=== PATIENT | female | born 1930 | race Caucasian/White ===

== ENCOUNTER 2017-01-23 14:13 | Inpatient (IN) | payer MEDICAID, MEDICARE ==
[~2017-01-23] VITALS: Ht 152.4 cm; Wt 57.4 kg
[~2017-01-23 14:13] MED LIST: BIMA2.5D5 EACHEYE; DORZ10DR11 EACHEYE; GLIP5TAB26 PO; HYDR-552 PO; NAPR375T5 PO; PROP10DR2 EACHEYE; TEMA15CA PO
--- NOTE | 2017-01-23 14:13 | NUR ---
BIB FAMILY C/O COUGH WITH CONGESTION X 1 WEEK. NAD NOTED. PT AAO X3, CUBAN SPEAKER. AMB WITH WALKER. RR EVEN AND UNLABORED. PENDING MD PARADA.
[2017-01-23 15:03] LABS: BASOPHILS # (AUTO) 0.1 /CMM (0.0-0.2); BASOPHILS % (AUTO) 0.7 % (0.0-2.0); EOSINOPHILS # (AUTO) 0.2 /CMM (0.0-0.7); EOSINOPHILS % (AUTO) 1.5 % (0.0-6.0); HEMATOCRIT 44 % (33-45); HEMOGLOBIN 14.5 g/dL (11.5-14.8); LYMPHOCYTES # (AUTO) 1.6 /CMM (0.8-4.8); LYMPHOCYTES % (AUTO) 15.5 % (20.0-44.0); MEAN CORPUSCULAR HEMOGLOBIN 28 PG (26.0-33.0); MEAN CORPUSCULAR HGB CONC 33 g/dl (31.0-36.0); MEAN CORPUSCULAR VOLUME 84 fL (82-100); MONOCYTES # (AUTO) 0.5 /CMM (0.1-1.30); MONOCYTES % (AUTO) 4.9 % (2.0-12.0); NEUTROPHILS # (AUTO) 7.9 /CMM (1.8-8.9); NEUTROPHILS % (AUTO) 77.4 % (43.0-81.0); PLATELET COUNT (AUTO) 257 /CMM (150-450); RDW COEFFICIENT OF VARIATION 13.6 (11.5-15.0); RED BLOOD CELL COUNT(AUTO) 5.26 MIL/uL (4.0-5.2); WHITE BLOOD COUNT (AUTO) 10.3 K/uL (4.3-11.0)
--- NOTE | 2017-01-23 15:10 | NUR ---
PT TO CT
[2017-01-23 15:17] LABS: INR 0.98 (0.87-1.13); PROTHROMBIN TIME 10.2 SECS (9.5-12.7)
[2017-01-23 15:19] LABS: ALBUMIN 3.5 g/dL (3.4-5.0); BILIRUBIN,DIRECT 0.1 mg/dL (0.0-0.2); BILIRUBIN,TOTAL 0.3 mg/dL (0.2-1.0); CREATININE 0.5 mg/dL (0.6-1.3); TOTAL PROTEIN, SERUM 7.5 g/dL (6.4-8.2)
[2017-01-23 15:24] LABS: CALCIUM, SERUM 9.2 mg/dL (8.5-10.1)
[2017-01-23 16:36] LABS: APPEARANCE,URINE Clear (CLEAR); BILIRUBIN,URINE Negative (NEGATIVE); BLOOD, URINE Trace-intact Ery/uL (NEGATIVE); COLOR,URINE Yellow (YELLOW); KETONES,URINE Negative (NEGATIVE); LEUKOCYTE ESTERASE ,URINE Negative (NEGATIVE); NITRITE, URINE Negative (NEGATIVE); PH,URINE 5.5 (5.0-8.0); PROTEIN,URINE Negative (NEGATIVE); UGLUCOSE Negative (NEGATIVE); UROBILINOGEN,URINE 0.2 EU/dL (0.2)
[2017-01-23 16:45] LABS: ADD URINE CULTURE NO; BACTERIA,URINE Rare /HPF (None Seen); RBC,URINE 0-2 /HPF (0-2); SQUAMOUS EPITHELIAL CELL,UR Few /HPF (None Seen); WBC,URINE 0-2 /HPF (0-3)
[2017-01-23] MEDS ORDERED: PIPERACILLIN /TAZOBACTAM 3.375 G VIAL IV ONE (16:59)
[2017-01-23] MEDS ORDERED: IV SET PRIMARY PUMP SET 1 EA INFUS.SET MC ONE ×2 (16:59→21:28)
[2017-01-23] MEDS ORDERED: PIPERACILLIN /TAZOBACTAM 3.375 G in IV D5W 50 ML IV ONE (17:00)
--- NOTE | 2017-01-23 17:01 | NUR ---
PAGED DR DO
--- NOTE | 2017-01-23 17:01 | NUR ---
CALLED NURSING SUP REQUESTED MEDSURG BED
--- NOTE | 2017-01-23 17:36 | NUR ---
PANEL ON-CALL PAGED
[2017-01-23] MEDS ORDERED: GLIP10TA11 PO (17:47)
[2017-01-23] MEDS ORDERED: OMEP20TA68 PO (17:47)
[2017-01-23] MEDS ORDERED: DICL75TA5 PO (17:47)
[2017-01-23] MEDS ORDERED: LATA2.5D7 EACHEYE (17:47)
--- NOTE | 2017-01-23 18:30 | NUR ---
REPORT GIVEN TO ANUSHA MELENDREZ FOR PORTIA
[2017-01-23 20:00] VITALS: BP 131/77
[2017-01-23] MEDS ORDERED: ONDANSETRON HCL/PF 4 MG/2 ML VIAL IVP PRN (20:30)
[2017-01-23] MEDS ORDERED: MAGNESIUM HYDROXIDE 30 ML UDC PO PRN (20:30)
[2017-01-23] MEDS ORDERED: Z GUARD REMEDY 2 OZ OINT TP PRN (20:30)
[2017-01-23] MEDS ORDERED: ACETAMINOPHEN 325 MG TABLET PO PRN (20:30)
[2017-01-23] MEDS ORDERED: ZOLPIDEM TARTRATE 5 MG TABLET PO PRN (20:30)
[2017-01-23] MEDS ORDERED: MAG HYDROX/AL HYDROX/SIMETH 30 ML UDC PO PRN (20:30)
[2017-01-23] MEDS: ENOXAPARIN SODIUM 30 MG/0.3 ML DISP.SYRIN SQ SCH (21:12)
[2017-01-23] MEDS: HYDROCODONE/APAP 5/325MG 1 EACH TABLET PO PRN (21:38)
[2017-01-23] MEDS: IV NS 0.9% 1,000 ML IV PRN (21:40)
[2017-01-24] MEDS ORDERED: METRONIDAZOLE 500MG/ NS 100ML 500 MG in PREMIX 1 EA IV SCH ×2 (00:30→07:23)
[2017-01-24] MEDS ORDERED: DEXTROSE 50%-WATER 50 ML DISP.SYRIN IV PRN (00:30)
[2017-01-24] MEDS ORDERED: METRONIDAZOLE 500MG/ NS 100ML 100 ML IV ONE (01:24)
--- NOTE | 2017-01-24 02:30 | NUR ---
MS RN ADMITTING OPENING NOTES RECEIVED PATIENT IN WHEELCHAIR AT 1905 01/23/2017 AWAKE, ALERT AND ORIENTED X 3. IN STABLE CONDITION NO S/S OF DISTRESS NOTED. VERBALLY RESPONSIVE WITH NO C/O PAIN OR DISCOMFORTS VOICED. IV SITE INTACT W/ NO S/S OF INFILTRATION NOTED. HEAD TO TOE ASSESSMENT SKIN IS INTACT, CALL LIGHT WITHIN REACH. BED AT LOW POSITION AND LOCKED FOR SAFETY. WILL CONTINUE TO MONITOR ACCORDINGLY.
[2017-01-24] MEDS: HYDROCODONE/APAP 5/325MG 1 EACH TABLET PO PRN (02:56)
[2017-01-24] MEDS ORDERED: ALBUTEROL FS 2.5 MG/3 ML VIAL.NEB ONE (04:03)
[2017-01-24] MEDS: ALBUTEROL FS 2.5 MG/3 ML VIAL.NEB NEB SCH ×5 (04:07→21:53)
[2017-01-24] MEDS: BLOOD SUGAR DIAGNOSTIC 1 EACH STRIP IN SCH ×4 (05:40→21:27)
--- NOTE | 2017-01-24 06:31 | NUR ---
MS RN CLOSING NOTES PATIENT COMFORTABLY IN BED ASLEEP AND EASILY AWAKEN, HEAD OF BED ELEVATED FOR BETTER LUNG EXPANSION AND BETTER CIRCULATION, TOLERATING ROOM AIR, SP02 96% R.A ALERT AND VERBALLY X 3 NO S/S OF DISTRESS, LUXEMBOURGER SPEAKING, NS AT 75CC/HR RUNNING TOLERATED WELL, IV SITE INTACT W/ NO S/S OF INFILTRATION NOTED. RESPIRATIONS EVEN UNLABORED BREATH SOUNDS. APICAL PULSE REGULAR; NO S/S OF HYPO/HYPERGLYCEMIA. GOOD SKIN CARE PROVIDED. PATIENT IN STABLE CONDITION WITH NO SOB NO S/S OF DISTRESS NO NAUSEA AND VOMITING NO HEADACHE NO PAIN, NO CHEST PAIN SAFETY ENVIRONMENT PROVIDED. FREE OF CLUTTERS, SAFE HAZARD FREE ENVIRONMENT. NEEDS ATTENDED AND ANTICIPATED, NURSING CARE RENDERED, KEPT CLEAN AND DRY AND COMFORTABLE. ALL DUE MEDS WAS GIVEN. CALL LIGHT IN REACH, BED LOWERED AND LOCKED, SR X2 FOR SAFETY AND WILL ENDORSE CONTINUE PLAN OF CARE. ON ATB WITH NO A/R NOTED.
[2017-01-24 06:35] LABS: BASOPHILS % (AUTO) 0.6 % (0.0-2.0); EOSINOPHILS # (AUTO) 0.2 /CMM (0.0-0.7); EOSINOPHILS % (AUTO) 2.8 % (0.0-6.0); HEMATOCRIT 39 % (33-45); HEMOGLOBIN 12.7 g/dL (11.5-14.8); LYMPHOCYTES % (AUTO) 30.7 % (20.0-44.0); MEAN CORPUSCULAR HEMOGLOBIN 28 PG (26.0-33.0); MEAN CORPUSCULAR HGB CONC 33 g/dl (31.0-36.0); MEAN CORPUSCULAR VOLUME 85 fL (82-100); MONOCYTES # (AUTO) 0.5 /CMM (0.1-1.30); MONOCYTES % (AUTO) 7.8 % (2.0-12.0); NEUTROPHILS # (AUTO) 3.7 /CMM (1.8-8.9); NEUTROPHILS % (AUTO) 58.1 % (43.0-81.0); PLATELET COUNT (AUTO) 218 /CMM (150-450); RDW COEFFICIENT OF VARIATION 14.8 (11.5-15.0); RED BLOOD CELL COUNT(AUTO) 4.61 MIL/uL (4.0-5.2); WHITE BLOOD COUNT (AUTO) 6.4 K/uL (4.3-11.0)
--- NOTE | 2017-01-24 07:00 | NUR ---
MS RN INITIAL NOTES REPORT RECEIVED AT THE BEDSIDE. PATIENT IS RESTING COMFORTABLY IN BED. NO SOB OR DISTRESS NOTED AT THIS TIME. PATIENT DENIES PAIN. BED IN A LOW POSITION, CALL LIGHT WITHIN PATIENT REACH. WILL CONTINUE TO MONITOR.
[2017-01-24 07:01] LABS: CALCIUM, SERUM 8.7 mg/dL (8.5-10.1); CREATININE 0.6 mg/dL (0.6-1.3); MAGNESIUM 1.9 mg/dL (1.8-2.4); PHOSPHORUS 4.6 mg/dL (2.5-4.9); POTASSIUM 4.2 mmol/L (3.5-5.1)
[2017-01-24 08:00] VITALS: BP 129/50
[2017-01-24] MEDS: ASPIRIN 81 MG TAB.CHEW PO SCH (08:13)
[2017-01-24] MEDS: TIMOLOL MAL/DORZOLAM HCL OPHTH 10 ML BOTTLE EACHEYE SCH ×2 (08:13→17:46)
[2017-01-24] MEDS: PANTOPRAZOLE 40 MG TABLET.DR PO SCH (08:13)
[2017-01-24] MEDS: POLYVINYL ALCOHOL 15 ML BOTTLE OP SCH ×3 (08:13→17:46)
[2017-01-24] MEDS: METRONIDAZOLE 500MG/ NS 100ML 500 MG in PREMIX 1 EA IV SCH ×2 (12:14→21:26)
[2017-01-24] MEDS: INSULIN REGULAR, HUMAN 100 UNIT/ML 3 ML VIAL SQ PRN ×3 (12:16→22:11)
[2017-01-24] MEDS: IV NS 0.9% 1,000 ML IV PRN (14:38)
[2017-01-24 16:00] VITALS: BP 119/61
--- NOTE | 2017-01-24 16:00 | NUR ---
MS RN NOTES PATIENT ASKS TO BE TAKEN OFF OF THE IV FLUIDS FOR A LITTLE WHILE.
[2017-01-24] MEDS: LATANOPROST EYE DROP 0.005% 2.5 ML BOTTLE EACHEYE SCH (17:46)
--- NOTE | 2017-01-24 19:10 | NUR ---
MS RN CLOSING NOTES NO SIGNIFICANT CHANGES IN PATIENT CONDITION THROUGHOUT THE SHIFT. NO SOB OR DISTRESS NOTED AT THIS TIME. PATIENT DENIES PAIN. BED IN A LOW POSITION, CALL LIGHT WITHIN PATIENT REACH, FAMILY IS AT THE BEDSIDE. WILL ENDORSE FOR PORTIA.
--- NOTE | 2017-01-24 19:10 | NUR ---
RN NOTES RECEIVED PT AWAKE, HOB ELEVATED AT ROOM AIR, NO SOB, NOT IN DISTRESS WITH FAMILY AT BED SIDE. PT ALERT ALERT AND ORIENTED X3, DENIES ANY PAIN AND DISCOMFORT. COUGH AT TIMES, PRODUCTIVE, ABLE TO SPIT OUT CLEAR, WHITE, THIN SECRETIONS. IV ACCESS ON LEFT AC PATENT AND INTACT WITH ONGOING IVF INFUSING WELL. KEPT ON FULL LIQUID DIET, PT MADE AWARE. KEPT BED IN THE LOWEST POSITION, LOCKED, SIDE RAILSX2 UP WITH CALL LIGHT WITHIN REACH. KEPT COMFORTABLE AND ATTENDED. WILL CONTINUE TO MONITOR ACCORDINGLY.
[2017-01-24 20:00] VITALS: BP 112/47
--- NOTE | 2017-01-24 21:27 | NUR ---
RN NOTES BLOOD SUGAR CHECKED 126 MG/DL, NO INSULIN COVERAGE PER SLIDING SCALE. WILL CONTINUE TO MONITOR PT.
[2017-01-24] MEDS: ENOXAPARIN SODIUM 30 MG/0.3 ML DISP.SYRIN SQ SCH (21:30)
[2017-01-25] MEDS: ALBUTEROL FS 2.5 MG/3 ML VIAL.NEB NEB SCH ×7 (01:33→23:30)
[2017-01-25] MEDS: METRONIDAZOLE 500MG/ NS 100ML 500 MG in PREMIX 1 EA IV SCH ×3 (05:12→21:25)
[2017-01-25] MEDS: BLOOD SUGAR DIAGNOSTIC 1 EACH STRIP IN SCH ×4 (06:18→21:27)
--- NOTE | 2017-01-25 06:18 | NUR ---
RN NOTES BLOOD SUGAR CHECKED 101 MG/DL, NO INSULIN COVERAGE PER SLIDING SCALE. NO SIGNS AND SYMPTOMS HYPOGLYCEMIA NOTED.WILL CONTINUE TO MONITOR PT.
--- NOTE | 2017-01-25 06:50 | NUR ---
RN NOTES PT AWAKE, HOB ELEVATED, NO SOB, NOT IN DISTRESS, ON O2 INHALATION AT 2LPM VIA NC. VITAL SIGNS STABLE, AFEBRILE. NO COMPLAIN OF PAIN, NO EPISODE OF NAUSEA AND VOMITING NOTED. COUGH AT TIMES, PRODUCTIVE, ABLE TO SPIT OUT SECRETIONS. BRP, ASSISTED TO BATHROOM WITH FWW. FALL PRECAUTION OBSERVED. TOLERATED FULL LIQUID DIET. NO SIGNS OF HYPOGLYCEMIA NOTED. WILL ENDORSE TO MORNING RN FOR CONTINUITY OF CARE.
[2017-01-25 07:51] VITALS: BP 115/64
[2017-01-25 08:00] VITALS: BP 115/64
--- NOTE | 2017-01-25 08:00 | NUR ---
MS RN AM NOTES PT AWAKE, HOB ELEVATED, NO SOB, NOT IN DISTRESS, ON ROOM AIR. AFEBRILE. NO COMPLAIN OF PAIN, NO EPISODE OF NAUSEA AND VOMITING NOTED. NO COUGHING NOTED.ASSISTED TO BEDSIDE COMMODE WITH FWW WITH ASSIST. FALL PRECAUTION OBSERVED. TOLERATED FULL LIQUID DIET. NO SIGNS OF HYPOGLYCEMIA NOTED.CALL LIGHT PLACED WITHIN REACH.
[2017-01-25] MEDS: PANTOPRAZOLE 40 MG TABLET.DR PO SCH (08:25)
[2017-01-25] MEDS: ASPIRIN 81 MG TAB.CHEW PO SCH (08:25)
[2017-01-25] MEDS: HYDROCODONE/APAP 5/325MG 1 EACH TABLET PO PRN (08:29)
[2017-01-25] MEDS: TIMOLOL MAL/DORZOLAM HCL OPHTH 10 ML BOTTLE EACHEYE SCH ×2 (08:56→18:37)
[2017-01-25] MEDS: POLYVINYL ALCOHOL 15 ML BOTTLE OP SCH ×3 (08:56→18:37)
[2017-01-25] MEDS: IV NS 0.9% 1,000 ML IV PRN (10:15)
[2017-01-25 13:14] LABS: BASOPHILS # (AUTO) 0.1 /CMM (0.0-0.2); BASOPHILS % (AUTO) 0.6 % (0.0-2.0); EOSINOPHILS # (AUTO) 0.2 /CMM (0.0-0.7); EOSINOPHILS % (AUTO) 2.6 % (0.0-6.0); HEMATOCRIT 38 % (33-45); HEMOGLOBIN 12.4 g/dL (11.5-14.8); LYMPHOCYTES # (AUTO) 1.2 /CMM (0.8-4.8); LYMPHOCYTES % (AUTO) 14.6 % (20.0-44.0); MEAN CORPUSCULAR HEMOGLOBIN 28 PG (26.0-33.0); MEAN CORPUSCULAR HGB CONC 33 g/dl (31.0-36.0); MEAN CORPUSCULAR VOLUME 84 fL (82-100); MONOCYTES # (AUTO) 0.6 /CMM (0.1-1.30); MONOCYTES % (AUTO) 6.7 % (2.0-12.0); NEUTROPHILS # (AUTO) 6.4 /CMM (1.8-8.9); NEUTROPHILS % (AUTO) 75.5 % (43.0-81.0); PLATELET COUNT (AUTO) 210 /CMM (150-450); RDW COEFFICIENT OF VARIATION 14.6 (11.5-15.0); RED BLOOD CELL COUNT(AUTO) 4.47 MIL/uL (4.0-5.2); WHITE BLOOD COUNT (AUTO) 8.5 K/uL (4.3-11.0)
[2017-01-25 13:39] LABS: CALCIUM, SERUM 8.5 mg/dL (8.5-10.1); CREATININE 0.6 mg/dL (0.6-1.3); MAGNESIUM 1.8 mg/dL (1.8-2.4); POTASSIUM 4.6 mmol/L (3.5-5.1)
[2017-01-25 16:00] VITALS: BP 118/71
[2017-01-25] MEDS: LATANOPROST EYE DROP 0.005% 2.5 ML BOTTLE EACHEYE SCH (18:38)
--- NOTE | 2017-01-25 19:46 | NUR ---
PT HAS BEEN REFUSING ACCUCHECK SAYING THAT IT HURTS HER FINGERS.EXPLAINED ITS RISKS AND BENEFITS BUT PT CONTINUE TO REFUSE.DR LAKHANI AWARE.PT RESTING IN BED DENYING ANY PAIN OR DISTRESS.CALL LIGHT PLACED WITHIN REACH.
--- NOTE | 2017-01-25 19:47 | NUR ---
RN NOTES RECEIVED PT AWAKE, HOB ELEVATED, NO SOB, NOT IN DISTRESS, ON O2 INHALATION AT 2LPM VIA NC TOLERATED WELL. PT ALERT AND ORIENTED X3, DENIES ANY PAIN AND DISCOMFORT. WITH IV ACCESS ON LEFT AC PATENT AND INTACT WITH ONGOING IVF INFUSING WELL. KEPT BED IN LOWEST POSITION, LOCKED, SIDE RAILS UP X3 WITH CALL LIGHT WITHIN REACH. KEPT COMFORTABLE AND ATTENDED. FALL PRECAUTION OBSERVED. WILL CONTINUE TO MONITOR PT.
[2017-01-25 20:00] VITALS: BP 156/88
--- NOTE | 2017-01-25 20:57 | NUR ---
RN NOTES DR LAKHANI MADE AWARE PT STILL ON FULL LIQUID DIET SINCE ADMISSION, AND CHANGED IT TO SOFT DIET. PT MADE AWARE , AND STATED ON SOFT DIET AND TOLERATED WELL. WILL CONTINUE TO MONITOR PT.
[2017-01-25] MEDS: ENOXAPARIN SODIUM 30 MG/0.3 ML DISP.SYRIN SQ SCH (21:26)
--- NOTE | 2017-01-25 21:27 | NUR ---
RN NOTES PT REFUSED FOR BLOOD SUGAR CHECK BECAUSE OF PAIN, RISK AND BENEFITS EXPLAINED, PT STRONGLY REFUSED.
[2017-01-25] MEDS: INSULIN REGULAR, HUMAN 100 UNIT/ML 3 ML VIAL SQ PRN (21:28)
[2017-01-26] MEDS: HYDROCODONE/APAP 5/325MG 1 EACH TABLET PO PRN (01:44)
--- NOTE | 2017-01-26 01:44 | NUR ---
RN NOTES PT COMPLAINS OF RIGHT UPPER LEG PAIN 03/18, AFTER SHE GET UP AND USE THE BEDSIDE COMMODE. NORCO 5/325 MG TAB GIVEN PO AND TOLERATED WELL. WILL CONTINUE TO MONITOR PT.
[2017-01-26] MEDS: ALBUTEROL FS 2.5 MG/3 ML VIAL.NEB NEB SCH ×4 (03:30→14:50)
[2017-01-26] MEDS: METRONIDAZOLE 500MG/ NS 100ML 500 MG in PREMIX 1 EA IV SCH (05:05)
[2017-01-26] MEDS: IV NS 0.9% 1,000 ML IV PRN (05:06)
[2017-01-26] MEDS ORDERED: FUROSEMIDE 20 MG/2 ML VIAL IV ONE (05:30)
--- NOTE | 2017-01-26 06:00 | NUR ---
RN NOTES RECEIVED NEW ORDER FROM DR LAKHANI, CHANGED IV FLAGYL TO PO, LASIX 20MG IV X1 , CXR TODAY AND D/C IVF. PT MADE AWARE. NOTED AND CARRIED OUT.
[2017-01-26] MEDS ORDERED: FUROSEMIDE 20 MG/2 ML VIAL ONE (06:25)
[2017-01-26] MEDS: BLOOD SUGAR DIAGNOSTIC 1 EACH STRIP IN SCH ×3 (06:31→17:15)
[2017-01-26] MEDS: INSULIN REGULAR, HUMAN 100 UNIT/ML 3 ML VIAL SQ PRN ×2 (06:32→17:15)
--- NOTE | 2017-01-26 06:33 | NUR ---
RN NOTES BLOOD SUGAR CHECKED 95 MG/DL, NO INSULIN COVERAGE PER SLIDING SCALE. NO SIGNS OF HYPOGLYCEMIA NOTED.
--- NOTE | 2017-01-26 07:12 | NUR ---
RN NOTES PT AWAKE, HOB ELEVATED, NO SOB, NOT IN DISTRESS, WITH O2 INHALATION AT 2LPM AND TOLERATED WELL. VITAL SIGNS STABLE, AFEBRILE. DENIES CHEST PAIN AND SOB. NO EPISODE OF NAUSEA AND VOMITING NOTED. PT COUGH AT TIMES, PRODUCTIVE WITH SMALL THIN WHITE SECRETIONS. ASSISTED TO BATHROOM AND BEDSIDE COMMODE, WITH SAFETY MEASURES IN PLACE. ALL NEEDS MET. WILL ENDORSE TO MORNING RN FOR CONTINUITY OF CARE.
--- NOTE | 2017-01-26 07:30 | NUR ---
MS RN NOTES RECEIVED PATIENT AWAKE, AOX3. BREATHING EVEN AND NON LABORED, DENIES ANY PAIN AT THIS TIME. PIV LAC INTACT AND PATENT. CALL LIGHT WITHIN REACH, BED IN LOW POSITION FOR SAFETY MEASURES. WILL CONTINUE TO MONITOR
[2017-01-26 08:00] VITALS: BP 135/68
--- NOTE | 2017-01-26 08:00 | NUR ---
MS RN NOTES SEEN AND EXAMINED BY DR. LAKHANI. WITH NEW ORDERS MADE MADE FOR DC HOME TODAY.
[2017-01-26] MEDS: PANTOPRAZOLE 40 MG TABLET.DR PO SCH (08:41)
[2017-01-26] MEDS: ASPIRIN 81 MG TAB.CHEW PO SCH (08:41)
[2017-01-26] MEDS: TIMOLOL MAL/DORZOLAM HCL OPHTH 10 ML BOTTLE EACHEYE SCH ×2 (08:42→16:03)
[2017-01-26] MEDS: POLYVINYL ALCOHOL 15 ML BOTTLE OP SCH ×3 (08:42→16:02)
[2017-01-26 09:35] LABS: BASOPHILS % (AUTO) 0.3 % (0.0-2.0); EOSINOPHILS # (AUTO) 0.2 /CMM (0.0-0.7); EOSINOPHILS % (AUTO) 1.8 % (0.0-6.0); HEMATOCRIT 39 % (33-45); HEMOGLOBIN 12.7 g/dL (11.5-14.8); LYMPHOCYTES % (AUTO) 11.6 % (20.0-44.0); MEAN CORPUSCULAR HEMOGLOBIN 28 PG (26.0-33.0); MEAN CORPUSCULAR HGB CONC 33 g/dl (31.0-36.0); MEAN CORPUSCULAR VOLUME 85 fL (82-100); MONOCYTES # (AUTO) 0.5 /CMM (0.1-1.30); MONOCYTES % (AUTO) 6.1 % (2.0-12.0); NEUTROPHILS # (AUTO) 7.2 /CMM (1.8-8.9); NEUTROPHILS % (AUTO) 80.2 % (43.0-81.0); PLATELET COUNT (AUTO) 201 /CMM (150-450); RDW COEFFICIENT OF VARIATION 14.3 (11.5-15.0); RED BLOOD CELL COUNT(AUTO) 4.51 MIL/uL (4.0-5.2); WHITE BLOOD COUNT (AUTO) 8.9 K/uL (4.3-11.0)
[2017-01-26 09:46] LABS: CALCIUM, SERUM 8.7 mg/dL (8.5-10.1); CREATININE 0.5 mg/dL (0.6-1.3); MAGNESIUM 1.6 mg/dL (1.8-2.4); POTASSIUM 3.7 mmol/L (3.5-5.1)
--- NOTE | 2017-01-26 10:00 | NUR ---
MS RN NOTES LATEST O2 SAT RA 93%. NO S/S OF RESPIRATORY DISTRESS OR SOB NOTED.
--- NOTE | 2017-01-26 10:30 | NUR ---
MS RN NOTES PT FOR DC HOME TODAY, DTR AT BEDSIDE. DTR STATED THAT SHE WILL COME BACK TO LINE OUT MAN HER MOM IN THE EVENING AROUND 6PM.
--- NOTE | 2017-01-26 11:30 | NUR ---
MS RN NOTES MAGNESIUM IV STARTED.
--- NOTE | 2017-01-26 11:40 | NUR ---
MS RN NOTES PT REFUSED TO CHECK HER BLOOD SUGAR. RISK AND BENEFITS DISCUSSED BUT SHE STILL REFUSED.
[2017-01-26] MEDS ORDERED: SECONDARY IV SET 1 EA INFUS.SET MC ONE (12:02)
[2017-01-26] MEDS: Magnesium 1GM/D5W 100ML PREMIX 100 ML IV SCH ×2 (12:09→13:24)
[2017-01-26] MEDS ORDERED: METRONIDAZOLE 250 MG TABLET PO SCH (13:00)
[2017-01-26] MEDS ORDERED: LEVO500T15 PO (14:51)
[2017-01-26 16:00] VITALS: BP_SYST 114; BP_SYST 125; BP_DIAS 53; BP_DIAS 89
[2017-01-26] MEDS: LATANOPROST EYE DROP 0.005% 2.5 ML BOTTLE EACHEYE SCH (17:14)
--- NOTE | 2017-01-26 17:15 | NUR ---
MS RN NOTES PT REFUSED TO CHECK HER BS SHE STATED THAT SHE ONLY CHECK HER SUGAR IN THE MORNING BEFORE BREAKFAST. EXPLAINED TO THE PT THAT SHE'S AT RISK FOR LOW AND HIGH BS. PT REFUSED 3X.
--- NOTE | 2017-01-26 17:41 | NUR ---
MS RN NOTES PT'S GRAND DTR CALLED AND SHE STATED THAT THEY'LL BE COMING TONIGHT TO EXECUTIVE COORDINATOR THE PT.
--- NOTE | 2017-01-26 18:11 | NUR ---
MS RN NOTES NEEDS ALL ANTICIPATED AND ATTENDED. ENDORSED TO INCOMING SHIFT FOR CONTINUITY OF CARE.
--- NOTE | 2017-01-26 19:54 | NUR ---
PATIENT DISCHARGE PATIENT LEFT AT 1954, PATIENT ON STABLE CONDITION NO S/S OF DISTRESS NOTED, NO CHEST PAIN, NO HEADACHE, NO NAUSEA AND VOMITING, NO COMPLAINS OF PAIN, VS STABLE, TOLERATING ROOM AIR, HEALTH EDUCATION AND EXIT CARE WAS PROVIDED, EDUCATION ABOUT DISEASE AND RISKS AND BENEFITS FOLLOW UP CARE PROVIDED WITH FAMILY, VERBALIZED UNDERSTANDING. DOCUMENTS WAS PROVIDED. CONTINUE MEDICATION PRESCRIPTION WAS PROVIDED. VERBALIZED UNDERSTANDING. IV SITE WAS REMOVED WITH MINIMAL BLEEDING, APPLIED CLEAN DRESSING FOR PRESSURE AND KEPT CLEAN AND DRY. TOLERATED PROCEDURE WELL. MD AWARE OF PATIENT BEING DISCHARGE, ALL BELONGINGS WAS TAKEN, ASSIST PATIENT TO GO TO THE WHEELCHAIR WITH COP BREAKER TO THE LOBBY FOR TRANSPORTATION WITH DAUGHTER PATIENT APPRECIATIVE TO NURSES AND THANKFUL. PATIENT LEFT WITH THEIR OWN TRANSPORTATION.
== END 2017-01-26 19:55 | disposition home or self-care (01) | DRG 246 ==
LOC: ER 14:15 → MEDSG2 18:05
PROVIDERS: ADMIT Internal Medicine; ATTEND Internal Medicine
DX: K55.9 Vascular disorder of intestine, unspecified (principal); I50.33 Acute on chronic diastolic (congestive) heart failure; I27.2 Other secondary pulmonary hypertension; E11.9 Type 2 diabetes mellitus without complications; M48.02 Spinal stenosis, cervical region; I11.0 Hypertensive heart disease with heart failure; A09 Infectious gastroenteritis and colitis, unspecified; E78.5 Hyperlipidemia, unspecified; Z79.899 Other long term (current) drug therapy; Z79.84 Long term (current) use of oral hypoglycemic drugs; I34.2 Nonrheumatic mitral (valve) stenosis; M19.90 Unspecified osteoarthritis, unspecified site; Z86.73 Personal history of transient ischemic attack (TIA), and cerebral infarction without residual deficits; G89.29 Other chronic pain; I35.0 Nonrheumatic aortic (valve) stenosis; J42 Unspecified chronic bronchitis
CPT/HCPCS: 36415; 71010-TC; 80048-TC; 80061-TC; 80076-TC; 81000-TC; 82962-TC; 83690-TC; 83735-TC; 84100-TC; 85025-TC; 85730-TC; 87081-TC; 93307-TC; 94799-TC; 97001-TC; 97116-TC; 97530-TC; A4216; A4606; J1650; J1815; J1940; J2543; J3475; J3490; J7030; Z7610

== ENCOUNTER 2017-02-27 11:56 | Inpatient (IN) | payer MEDICAID, MEDICARE ==
[~2017-02-27] VITALS: Ht 160 cm; Wt 56.4 kg
[~2017-02-27 11:56] MED LIST changes: -BIMA2.5D5 EACHEYE; +GLIP10TA11 PO; -GLIP5TAB26 PO; -HYDR-552 PO; +LATA2.5D7 EACHEYE; +LEVO500T15 PO; -NAPR375T5 PO; +OMEP20TA68 PO; -TEMA15CA PO
--- NOTE | 2017-02-27 12:10 | NUR ---
AAOX3, BB DAUGHTER FOR ABD PAIN AND N/V SINCE YESTERDAY AFTER EATING IN A BUFFET. SKIN IS WARM AND DRY. RESP IS EVEN AND UNLABORED. NO ACUTE DISTRESS NOTED. ASSISTED TO HOSPITAL GOWN. STARTED IVHL LAC 20G. BLOOD DRAWN SENT TO THE LAB. DR PRETTY AT FOR EVAL.
[2017-02-27] MEDS ORDERED: PANTOPRAZOLE 40 MG VIAL ONE (12:44)
[2017-02-27] MEDS ORDERED: ONDANSETRON HCL/PF 4 MG/2 ML VIAL ONE (12:44)
[2017-02-27] MEDS ORDERED: MORPHINE SULFATE INJ 4 MG/ML DISP.SYRIN ONE (12:44)
[2017-02-27] MEDS ORDERED: IV SET PRIMARY 1 EA INFUS.SET MC ONE (12:45)
[2017-02-27] MEDS ORDERED: IV NS 0.9% 1,000 ML ONE (12:45)
[2017-02-27 12:50] LABS: BASOPHILS % (AUTO) 0.3 % (0.0-2.0); EOSINOPHILS % (AUTO) 0.4 % (0.0-6.0); HEMATOCRIT 42 % (33-45); HEMOGLOBIN 13.8 g/dL (11.5-14.8); LYMPHOCYTES # (AUTO) 0.7 /CMM (0.8-4.8); LYMPHOCYTES % (AUTO) 9.5 % (20.0-44.0); MEAN CORPUSCULAR HEMOGLOBIN 27 PG (26.0-33.0); MEAN CORPUSCULAR HGB CONC 33 g/dl (31.0-36.0); MEAN CORPUSCULAR VOLUME 84 fL (82-100); MONOCYTES # (AUTO) 0.5 /CMM (0.1-1.30); MONOCYTES % (AUTO) 6.5 % (2.0-12.0); NEUTROPHILS # (AUTO) 6.1 /CMM (1.8-8.9); NEUTROPHILS % (AUTO) 83.3 % (43.0-81.0); PLATELET COUNT (AUTO) 166 /CMM (150-450); RDW COEFFICIENT OF VARIATION 13.6 (11.5-15.0); RED BLOOD CELL COUNT(AUTO) 5.04 MIL/uL (4.0-5.2); WHITE BLOOD COUNT (AUTO) 7.3 K/uL (4.3-11.0)
[2017-02-27 12:58] LABS: CARBON DIOXIDE 26 mmol/L (21-32); CHLORIDE 104 mmol/L (98-107); CREATININE 0.7 mg/dL (0.6-1.3); GLUCOSE 106 mg/dL (74-106); POTASSIUM 4.2 mmol/L (3.5-5.1); SODIUM SERUM 140 mmol/L (136-145); UREA NITROGEN, BLOOD 29 mg/dL (7-18)
[2017-02-27] MEDS ORDERED: ONDANSETRON HCL/PF 4 MG/2 ML VIAL IVP ONE (13:00)
[2017-02-27] MEDS ORDERED: MORPHINE SULFATE INJ 2 MG/ML DISP.SYRIN IV ONE (13:00)
[2017-02-27] MEDS ORDERED: IV NS 0.9% 1,000 ML BAG IV ONE (13:00)
[2017-02-27] MEDS ORDERED: PANTOPRAZOLE 40 MG VIAL IV ONE (13:00)
[2017-02-27 13:03] LABS: ALANINE AMINOTRANSFERASE 11 U/L (12-78); ALBUMIN 3.4 g/dL (3.4-5.0); ALKALINE PHOSPHATASE 88 U/L (46-116); ASPARTATE AMINOTRANSFERASE 15 U/L (15-37); BILIRUBIN,DIRECT 0.1 mg/dL (0.0-0.2); BILIRUBIN,TOTAL 0.5 mg/dL (0.2-1.0); LIPASE 96 U/L (73-393); TOTAL PROTEIN, SERUM 7.3 g/dL (6.4-8.2)
--- NOTE | 2017-02-27 14:44 | NUR ---
KB PAGED, DR.VU ROMERO PULP GRINDER, TRANSFERRED CALL TO
[2017-02-27] MEDS ORDERED: IV NS 0.9% 1,000 ML IV PRN (14:47)
[2017-02-27] MEDS ORDERED: DEXTROSE 50%-WATER 50 ML DISP.SYRIN IV PRN ×2 (15:00→16:00)
[2017-02-27] MEDS ORDERED: MAGNESIUM HYDROXIDE 30 ML UDC PO PRN ×2 (15:00→16:00)
[2017-02-27] MEDS ORDERED: *INSULIN REGULAR(HUMULIN R)HUM 100 UNIT/ML VIAL SQ PRN ×2 (15:00→16:00)
[2017-02-27] MEDS ORDERED: MAG HYDROX/AL HYDROX/SIMETH 30 ML UDC PO PRN ×2 (15:00→16:00)
[2017-02-27] MEDS ORDERED: ACETAMINOPHEN 325 MG TABLET PO PRN (15:00)
[2017-02-27] MEDS ORDERED: Z GUARD REMEDY 2 OZ OINT TP PRN (15:00)
[2017-02-27] MEDS ORDERED: ZOLPIDEM TARTRATE 5 MG TABLET PO PRN ×2 (15:00→16:00)
[2017-02-27] MEDS ORDERED: ONDANSETRON HCL/PF 4 MG/2 ML VIAL IVP PRN ×2 (15:00→16:00)
[2017-02-27] MEDS ORDERED: INSULIN REGULAR, HUMAN 100 UNIT/ML 3 ML VIAL SQ PRN ×2 (15:00→16:00)
[2017-02-27] MEDS ORDERED: HYDROCODONE/APAP 5/325MG 1 EACH TABLET PO PRN ×2 (15:00→16:00)
--- NOTE | 2017-02-27 15:30 | NUR ---
MS 206-1
--- NOTE | 2017-02-27 15:40 | NUR ---
REPORT GIVEN TO MINDY FOR PORTIA
[2017-02-27 15:55] VITALS: BP 97/51
--- NOTE | 2017-02-27 15:55 | NUR ---
MS RN OPENING RECEIVED PATIENT A/OX4 STATES SLIGHT NAUSEA DENIES PAIN SOB, DIFFICULTY BREATHING. PATIENT DENIES DIARRHEA AT THIS TIME AWARE WE ARE NEEDING A CDIFF SAMPLE IF ANOTHER BOUT OF DIARRHEA. PATIENT SKIN INTACT. IV INTACT FLUSHED. DAUGHTER AT BEDSIDE FOR TRANSLATION. PATIENT APPEARS STABLE AT THIS TIME. CALL LIGHT IN REACH, BED LOWERED AND LOCKED, RAILS UPX3 FOR SAFETY AND WILL ROUND Q2H OR LESS PER NEEDS. MD AWARE OF ADMISSION.
[2017-02-27 16:00] VITALS: BP_SYST 90; BP_SYST 97; BP_DIAS 51; BP_DIAS 60
[2017-02-27] MEDS ORDERED: IV SET PRIMARY PUMP SET 1 EA INFUS.SET MC ONE (16:55)
[2017-02-27] MEDS: Z GUARD REMEDY 2 OZ OINT TP PRN (17:00)
[2017-02-27] MEDS: SYSTANE ULTRA EACHEYE SCH ×2 (17:00→18:04)
[2017-02-27] MEDS: glipiZIDE 10 MG TABLET PO SCH (17:00)
[2017-02-27] MEDS: BLOOD SUGAR DIAGNOSTIC 1 EACH STRIP VI SCH ×2 (17:00→21:26)
[2017-02-27] MEDS ORDERED: glipiZIDE 10 MG TABLET PO SCH (17:00)
[2017-02-27] MEDS: IV NS 0.9% 1,000 ML IV PRN (17:00)
[2017-02-27] MEDS ORDERED: TIMOLOL MAL/DORZOLAM HCL OPHTH 10 ML BOTTLE EACHEYE SCH (17:00)
--- NOTE | 2017-02-27 17:16 | NUR ---
MS RN NOTES AWAITING PHARMACY TO BRING UP EYE DROPS FOR PATIENT
[2017-02-27] MEDS ORDERED: BLOOD SUGAR DIAGNOSTIC 1 EACH STRIP VI SCH (17:30)
[2017-02-27] MEDS ORDERED: LATANOPROST EYE DROP 0.005% 2.5 ML BOTTLE EACHEYE SCH (18:00)
[2017-02-27] MEDS: LATANOPROST EYE DROP 0.005% 2.5 ML BOTTLE EACHEYE SCH (18:04)
[2017-02-27] MEDS: TIMOLOL MAL/DORZOLAM HCL OPHTH 10 ML BOTTLE EACHEYE SCH (18:04)
--- NOTE | 2017-02-27 18:41 | NUR ---
MS RN CLOSING PATIENT STABLE NO COMPLICATIONS NO CHANGES. PATIENT NO EPISODES OF DIARRHEA OR VOMITING. PATIENT DENIES PAIN. NAUSEA MANAGED WITH PRN MEDICATIONS. PATIENT ATE 75% OF BREAKFAST WITH NO COMPLICATIONS. ALL DUE MEDS GIVEN AND ALL NEEDS MET. CALL LIGHT IN REACH, BED LOWERED AND LOCKED, RAILS UPX3 FOR SAFETY AND WILL ENDORSE CARE TO ANEESH HOPKINS PORTIA
--- NOTE | 2017-02-27 19:35 | NUR ---
RN NOTE; RECEIVED PT IN BED AWAKE AND ALERT, BREATHING EVENLY. NO SOB. NO DISTRESS. NO C/O PAIN OR DISCOMFORT. DENIED ABD. PAIN OR N/V. NO DIARRHEA EPISODE AT THIS TIME. NEEDS ATTENDED. CALL LIGHT WITHIN REACH. WILL CONT TO MONITOR.
[2017-02-27 20:00] VITALS: BP 98/52
--- NOTE | 2017-02-27 21:30 | NUR ---
PT W/ FSBS:55 ON HS. PT ALERT AND ORIENTED. NO ALOC, NO CHANGE IN MS. NO EXCESSIVE SWEATING. D50 WAS GIVEN. PLACED A CALL FOR STAT GLUCOSE LEVEL AND INFORMED LAB FOR STAT ORDER. SNACKS OFFERED. WILL CONT TO MONITOR THE PT AND WILL RECHECK THE BS . WILL MONITOR PT FOR S/S OF HYPO OR HYPERGLYCEMIA CLOSELY.
--- NOTE | 2017-02-27 22:00 | NUR ---
UNABLE TO COLLECT STOOL SAMPLE ON THE DIARRHEA EPISODE DUE TO MIXED W/ URINE. WILL TRY NEXT TIME. Addendum: 02/27/17 at 2242 by GERONIMO SILVA RN Amended: Links added.
--- NOTE | 2017-02-27 22:00 | NUR ---
RECHECKED BS:118. PT STABLE W/ NO C/O DISCOMFORT. NAD. WILL CONT TO MONITOR
[2017-02-28] MEDS: IV NS 0.9% 1,000 ML IV PRN ×2 (04:49→18:35)
[2017-02-28] MEDS: BLOOD SUGAR DIAGNOSTIC 1 EACH STRIP VI SCH ×4 (06:49→21:46)
--- NOTE | 2017-02-28 06:50 | NUR ---
RN NOTE; PT IN BED AWAKE AND ALERT. BREATHING EVENLY. NO SOB;. NAD. NO ACUTE CHANGES OVER THE NIGHT. PT HAD AN EPISODE OF DIARRHEA DURING THE NIGHT. NO C/O N/V. NO C/O ABD. PAIN. NO S/S OF HYPO OR HYPERGLYCEMIA. BS:70 AC BREAKFAST. SNACKS GIVEN TO PREVENT HYPOGLYCEMIA. ASSISTED W/ ADLS. NEEDS MET. CALL LIGHT WITHIN REACH. WILL CONT TO MONITOR AND WILL ENDORSE TO AM SHIFT FOR PORTIA .
--- NOTE | 2017-02-28 07:15 | NUR ---
MS RN OPENING RECEIVED PATIENT A/OX4 DENIES PAIN, SOB, DIFFICULTY BREATHING AND STATES NO DIARRHEA AT THIS TIME. SHE IS AWARE WE ARE NEEDING A STOOL SAMPLE IF C DIFF QUALITY. PATIENT ASSISTED TO CHAIR FOR BREAKFAST. IVF RUNNING ORDERED. ALL NEEDS IN REACH CALL LIGHT IN REACH. WILL ROUND Q2H OR LESS PER NEEDS.
[2017-02-28] MEDS ORDERED: PANTOPRAZOLE 40 MG TABLET.DR PO SCH (07:30)
[2017-02-28 08:00] VITALS: BP 114/61
[2017-02-28 08:07] VITALS: BP 114/61
[2017-02-28] MEDS: PANTOPRAZOLE 40 MG TABLET.DR PO SCH (08:32)
[2017-02-28] MEDS: glipiZIDE 10 MG TABLET PO SCH ×2 (08:32→16:33)
[2017-02-28] MEDS: TIMOLOL MAL/DORZOLAM HCL OPHTH 10 ML BOTTLE EACHEYE SCH ×2 (08:33→16:33)
[2017-02-28] MEDS: SYSTANE ULTRA EACHEYE SCH ×3 (08:34→16:33)
[2017-02-28] MEDS: Z GUARD REMEDY 2 OZ OINT TP PRN (08:35)
--- NOTE | 2017-02-28 08:53 | NUR ---
MS RN NOTES DR ROMERO AT BEDSIDE
[2017-02-28 16:00] VITALS: BP 110/55
[2017-02-28] MEDS: LATANOPROST EYE DROP 0.005% 2.5 ML BOTTLE EACHEYE SCH (18:35)
--- NOTE | 2017-02-28 18:59 | NUR ---
MS RN CLOSING PATIENT STABLE. ALL DUE MEDS GIVEN AND ALL NEEDS MET. PATIENT IS HAVING BOUTS OF DIARRHEA X3 TODAY. Z GUARD FOR SACRUM PROTECTION. AWAITING CDIFF PANEL. PATIENT STATES NO NEEDS AT THIS TIME. CALL LIGHT IN REACH, BED LOWERED AND LOCKED, RAILS UPX3 FOR SAFETY BED ALARM ON. WILL ENDORSE CARE TO RN FOR PORTIA
[2017-02-28 20:00] VITALS: BP 126/58
[2017-02-28] MEDS: ACETAMINOPHEN 325 MG TABLET PO PRN (22:24)
--- NOTE | 2017-02-28 22:26 | NUR ---
COMPLAINING OF PAIN OF 3/10 TO RIGHT FOREARM, GIVEN TYLENOL 650 MG PO. KEPT COMFORTABLE, CALL LIGHT WITHIN REACH.
[2017-03-01] MEDS: IV NS 0.9% 1,000 ML IV PRN (06:27)
[2017-03-01] MEDS: BLOOD SUGAR DIAGNOSTIC 1 EACH STRIP VI SCH ×2 (06:28→12:51)
[2017-03-01 06:51] LABS: BASOPHILS % (AUTO) 0.2 % (0.0-2.0); EOSINOPHILS # (AUTO) 0.1 /CMM (0.0-0.7); EOSINOPHILS % (AUTO) 1.8 % (0.0-6.0); HEMATOCRIT 37 % (33-45); HEMOGLOBIN 12.5 g/dL (11.5-14.8); LYMPHOCYTES # (AUTO) 0.9 /CMM (0.8-4.8); LYMPHOCYTES % (AUTO) 15.1 % (20.0-44.0); MEAN CORPUSCULAR HEMOGLOBIN 29 PG (26.0-33.0); MEAN CORPUSCULAR HGB CONC 34 g/dl (31.0-36.0); MEAN CORPUSCULAR VOLUME 85 fL (82-100); MONOCYTES # (AUTO) 0.4 /CMM (0.1-1.30); NEUTROPHILS # (AUTO) 4.6 /CMM (1.8-8.9); NEUTROPHILS % (AUTO) 76.9 % (43.0-81.0); PLATELET COUNT (AUTO) 149 /CMM (150-450); RDW COEFFICIENT OF VARIATION 14.6 (11.5-15.0); RED BLOOD CELL COUNT(AUTO) 4.39 MIL/uL (4.0-5.2); WHITE BLOOD COUNT (AUTO) 5.9 K/uL (4.3-11.0)
--- NOTE | 2017-03-01 06:57 | NUR ---
MS RN NOTES AWAKE & RESPONSIVE. NOT IN ANY DISTRESS. NO SOB NOTED. DENIES ANY PAIN OR DISCOMFORT AT THIS TIME. WITH IVF INFUSING WELL. MONITORED ACCORDINGLY. CALL LIGHT WITHIN REACH. BED IN LOWEST POSITION. SR UP X 2 FOR SAFETY. WILL ENDORSE TO NEXT SHIFT.
[2017-03-01 07:04] LABS: CALCIUM, SERUM 8.8 mg/dL (8.5-10.1); CARBON DIOXIDE 26 mmol/L (21-32); CHLORIDE 106 mmol/L (98-107); CREATININE 0.4 mg/dL (0.6-1.3); GLUCOSE 76 mg/dL (74-106); POTASSIUM 4.2 mmol/L (3.5-5.1); SODIUM SERUM 139 mmol/L (136-145); UREA NITROGEN, BLOOD 8 mg/dL (7-18)
--- NOTE | 2017-03-01 07:50 | NUR ---
RN OPENING NOTES RECEIVED PATIENT IN BED, AWAKE, HOB, NO SOB OR DISTRESS NOTED. A/O X 4, VERBALLY RESPONSIVE AND ABLE TO MAKE NEEDS KNOWN. IV INTACT AND PATENT. KEPT PATIENT CLEAN AND COMFORTABLE IN BED, CALL LIGHT WITHIN PATIENT REACH. WILL CONTINUE TO MONITOR ACCORDINGLY.
[2017-03-01 08:00] VITALS: BP 151/68
[2017-03-01] MEDS: TIMOLOL MAL/DORZOLAM HCL OPHTH 10 ML BOTTLE EACHEYE SCH (08:32)
[2017-03-01] MEDS: glipiZIDE 10 MG TABLET PO SCH (08:32)
[2017-03-01] MEDS: PANTOPRAZOLE 40 MG TABLET.DR PO SCH (08:32)
--- NOTE | 2017-03-01 12:30 | NUR ---
RN NOTES PATIENT IS IN BED WITH HOB ELEVATED WITH NO SIGNS OF SOB OR DISTRESS NOTED.
[2017-03-01] MEDS: SYSTANE ULTRA EACHEYE SCH ×2 (12:51→14:02)
--- NOTE | 2017-03-01 13:45 | NUR ---
RN NOTES DAUGHTER JUDY CALLED TO KNOW STATUS OF PATIENT.
[2017-03-01] MEDS: ACETAMINOPHEN 325 MG TABLET PO PRN (14:01)
--- NOTE | 2017-03-01 16:40 | NUR ---
RN NOTES DISCHARGE INSTRUCTIONS GIVEN TO PATIENT IN ABLE TO UNDERSTAND INSTRUCTIONS AND SIGNED DISCHARGE PAPER AND BELONGINGS. IV REMOVED BEFORE DISCHARGE. PATIENT LEFT VIA WHEELCHAIR ACCOMPANIED WITH CUT OUT WORKER AND DAUGHTER IN STABLE CONDITION. NO SOB OR DISTRESS NOTED. VITALS SIGNS CHECKED AND RECORDED. MD AND CHARGE NURSE AWARE.
== END 2017-03-01 16:50 | disposition home or self-care (01) | DRG 249 ==
LOC: ER 11:58 → MEDSG2 15:51
PROVIDERS: ADMIT Family Medicine; ATTEND Family Medicine
DX: A08.4 Viral intestinal infection, unspecified (principal); I11.0 Hypertensive heart disease with heart failure; F03.90 Unspecified dementia, unspecified severity, without behavioral disturbance, psychotic disturbance, mood disturbance, and anxiety; I50.32 Chronic diastolic (congestive) heart failure; E11.9 Type 2 diabetes mellitus without complications; Z86.73 Personal history of transient ischemic attack (TIA), and cerebral infarction without residual deficits; I25.10 Atherosclerotic heart disease of native coronary artery without angina pectoris; M19.90 Unspecified osteoarthritis, unspecified site; Z79.899 Other long term (current) drug therapy; R53.81 Other malaise; K57.30 Diverticulosis of large intestine without perforation or abscess without bleeding
CPT/HCPCS: 36415; 80048-TC; 80076-TC; 82947-TC; 82962-TC; 83690-TC; 85025-TC; 87045-TC; 87081-TC; 97001-TC; A4606; C9113; J1815; J2270; J2405; J7030; Z7610

== ENCOUNTER 2017-04-11 13:49 | Emergency (ER) | payer MEDICARE, MEDICAID ==
[~2017-04-11] VITALS: Ht 152.4 cm; Wt 45.4 kg
--- NOTE | 2017-04-11 13:55 | NUR ---
COUGHING AT NIGHT X 2 WEEKS. AWATING MD ORDER.
[2017-04-11 14:21] LABS: BASOPHILS % (AUTO) 0.6 % (0.0-2.0); EOSINOPHILS # (AUTO) 0.1 /CMM (0.0-0.7); EOSINOPHILS % (AUTO) 1.7 % (0.0-6.0); HEMATOCRIT 39 % (33-45); LYMPHOCYTES # (AUTO) 1.6 /CMM (0.8-4.8); LYMPHOCYTES % (AUTO) 19.2 % (20.0-44.0); MEAN CORPUSCULAR HEMOGLOBIN 28 PG (26.0-33.0); MEAN CORPUSCULAR HGB CONC 33 g/dl (31.0-36.0); MEAN CORPUSCULAR VOLUME 85 fL (82-100); MONOCYTES # (AUTO) 0.7 /CMM (0.1-1.30); MONOCYTES % (AUTO) 8.4 % (2.0-12.0); NEUTROPHILS # (AUTO) 5.9 /CMM (1.8-8.9); NEUTROPHILS % (AUTO) 70.1 % (43.0-81.0); PLATELET COUNT (AUTO) 213 /CMM (150-450); RDW COEFFICIENT OF VARIATION 14.1 (11.5-15.0); RED BLOOD CELL COUNT(AUTO) 4.65 MIL/uL (4.0-5.2); WHITE BLOOD COUNT (AUTO) 8.3 K/uL (4.3-11.0)
[2017-04-11 14:29] LABS: CALCIUM, SERUM 8.4 mg/dL (8.5-10.1); CARBON DIOXIDE 29 mmol/L (21-32); CHLORIDE 108 mmol/L (98-107); CREATININE 0.9 mg/dL (0.6-1.3); GLUCOSE 192 mg/dL (74-106); POTASSIUM 4.2 mmol/L (3.5-5.1); SODIUM SERUM 143 mmol/L (136-145); UREA NITROGEN, BLOOD 35 mg/dL (7-18)
--- NOTE | 2017-04-11 14:30 | NUR ---
MEDICAL CENTER REPRESENTATIVE AT BEDSIDE
[2017-04-11 14:44] LABS: ACETAMINOPHEN 3 ug/ml (10-30); ALANINE AMINOTRANSFERASE 13 U/L (12-78); ALBUMIN 3.4 g/dL (3.4-5.0); ALKALINE PHOSPHATASE 99 U/L (46-116); ASPARTATE AMINOTRANSFERASE 17 U/L (15-37); BILIRUBIN,DIRECT 0.1 mg/dL (0.0-0.2); BILIRUBIN,TOTAL 0.3 mg/dL (0.2-1.0); TOTAL PROTEIN, SERUM 6.7 g/dL (6.4-8.2)
[2017-04-11 14:46] LABS: ALCOHOL, BLOOD 0 mg/dL (0-0); SALICYLATE 0.7 mg/dL (2.8-20.0)
[2017-04-11] MEDS ORDERED: IV NS 0.9% 1,000 ML BAG IV ONE (15:00)
--- NOTE | 2017-04-11 15:00 | NUR ---
[place] #20 IV ACCESS. MEDICATED ORDERED
--- NOTE | 2017-04-11 15:21 | NUR ---
Social service consult requested by ED PARVEEN Esquivel for resources to outpatient mental health facilities. ANDREW met with pt. and her daughter and other family members bedside. ANDREW gave pt's daughter a list of psychiatric/mental health facilities in [facility]. ANDREW also gave information to [facility] care located at [address] [place] [address] Tory Castro. POORNIMA . ANDREW discussed with family if pt. becomes a danger to self or others at home in the future they can call 911 and the police will send a crisis team to assess pt. Family understood.
--- NOTE | 2017-04-11 15:23 | NUR ---
URINE SAMPLE COLLECTED SENT TO LAB
[2017-04-11 15:24] VITALS: BP 100/63
[2017-04-11 15:27] LABS: APPEARANCE,URINE Clear (CLEAR); BILIRUBIN,URINE Negative (NEGATIVE); BLOOD, URINE Negative Ery/uL (NEGATIVE); COLOR,URINE Yellow (YELLOW); KETONES,URINE Trace (NEGATIVE); LEUKOCYTE ESTERASE ,URINE Negative (NEGATIVE); NITRITE, URINE Negative (NEGATIVE); PROTEIN,URINE Negative (NEGATIVE); UGLUCOSE Negative (NEGATIVE)
[2017-04-11 15:54] LABS: BACTERIA,URINE None seen /HPF (None Seen); RBC,URINE NONE SEEN /HPF (0-2); SQUAMOUS EPITHELIAL CELL,UR Rare /HPF (None Seen); WBC,URINE 0-2 /HPF (0-3)
--- NOTE | 2017-04-11 16:03 | NUR ---
Patient discharged to home in stable condition. Written and verbal after care instructions given. Patient verbalizes understanding of instruction.
--- NOTE | 2017-04-11 16:03 | NUR ---
IV removed. Catheter intact and site benign. Pressure and 4x4 applied to site. No bleeding noted.
== END 2017-04-11 16:03 | disposition home or self-care (01) ==
LOC: ER 13:54
DX: J18.9 Pneumonia, unspecified organism (principal); F32.9 Major depressive disorder, single episode, unspecified; E11.9 Type 2 diabetes mellitus without complications; I10 Essential (primary) hypertension; M19.90 Unspecified osteoarthritis, unspecified site; Z90.49 Acquired absence of other specified parts of digestive tract
CPT/HCPCS: 36415; 71010-TC; 80048-TC; 80076-TC; 80305; 81000-TC; 85025-TC; A4606; G0480; J7030; Z7610

== ENCOUNTER 2017-07-24 19:00 | Emergency (ER) | payer MEDICARE, MEDICAID ==
[~2017-07-24] VITALS: Ht 149.9 cm; Wt 54.0 kg
--- NOTE | 2017-07-24 19:25 | NUR ---
BBRA 860 FROM HOME C/O HEADACHE, BACK PAIN AND THROAT PAIN. PT AOX3 RR EVEN AND UNLABORED. NO SOB NOTED. NAD NOTED. NO NVD AT THIS TIME. PT GOWNED AND PLACED ON MONITOR WAITING FOR MD PARADA.
[2017-07-24] MEDS ORDERED: ACETAMINOPHEN ES 500 MG TABLET PO ONE (20:00)
[2017-07-24] MEDS ORDERED: KETOROLAC TROMETHAMINE INJ 60 MG/2 ML VIAL IM ONE (20:00)
[2017-07-24 20:12] LABS: BASOPHILS % (AUTO) 0.5 % (0.0-2.0); EOSINOPHILS # (AUTO) 0.2 /CMM (0.0-0.7); EOSINOPHILS % (AUTO) 2.2 % (0.0-6.0); HEMATOCRIT 39 % (33-45); HEMOGLOBIN 12.9 g/dL (11.5-14.8); LYMPHOCYTES # (AUTO) 1.7 /CMM (0.8-4.8); LYMPHOCYTES % (AUTO) 22.1 % (20.0-44.0); MEAN CORPUSCULAR HEMOGLOBIN 28 PG (26.0-33.0); MEAN CORPUSCULAR HGB CONC 34 g/dl (31.0-36.0); MEAN CORPUSCULAR VOLUME 84 fL (82-100); MONOCYTES # (AUTO) 0.5 /CMM (0.1-1.30); MONOCYTES % (AUTO) 6.3 % (2.0-12.0); NEUTROPHILS # (AUTO) 5.1 /CMM (1.8-8.9); NEUTROPHILS % (AUTO) 68.9 % (43.0-81.0); PLATELET COUNT (AUTO) 206 /CMM (150-450); RDW COEFFICIENT OF VARIATION 14.1 (11.5-15.0); RED BLOOD CELL COUNT(AUTO) 4.57 MIL/uL (4.0-5.2); WHITE BLOOD COUNT (AUTO) 7.5 K/uL (4.3-11.0)
[2017-07-24] MEDS ORDERED: KETOROLAC TROMETHAMINE INJ 30 MG/ML VIAL ONE (20:13)
[2017-07-24] MEDS ORDERED: ACETAMINOPHEN ES 500 MG TABLET ONE (20:13)
--- NOTE | 2017-07-24 20:14 | NUR ---
Kale asher in EDM - 07/24/17 at [address]
--- NOTE | 2017-07-24 20:14 | NUR ---
PT TO RADIOLOGY FOR XRAY
--- NOTE | 2017-07-24 20:25 | NUR ---
PT RETURNED FROM RADIOLOGY
--- NOTE | 2017-07-24 20:34 | NUR ---
INFLUENZA SWAB COLLECTED. CALLED LAB FOR SEWING LINE BALER.
[2017-07-24 20:36] LABS: CALCIUM, SERUM 9.3 mg/dL (8.5-10.1); CARBON DIOXIDE 27 mmol/L (21-32); CHLORIDE 100 mmol/L (98-107); CREATININE 0.5 mg/dL (0.6-1.3); GLUCOSE 106 mg/dL (74-106); POTASSIUM 4.2 mmol/L (3.5-5.1); SODIUM SERUM 135 mmol/L (136-145); UREA NITROGEN, BLOOD 21 mg/dL (7-18)
[2017-07-24 20:42] LABS: ALANINE AMINOTRANSFERASE 24 U/L (12-78); ALBUMIN 3.1 g/dL (3.4-5.0); ALKALINE PHOSPHATASE 89 U/L (46-116); ASPARTATE AMINOTRANSFERASE 19 U/L (15-37); BILIRUBIN,DIRECT 0.1 mg/dL (0.0-0.2); BILIRUBIN,TOTAL 0.4 mg/dL (0.2-1.0); TOTAL PROTEIN, SERUM 6.6 g/dL (6.4-8.2)
[2017-07-24 20:44] LABS: INR 0.92 (0.87-1.13); PROTHROMBIN TIME 9.6 SECS (9.5-12.7)
[2017-07-24 20:47] LABS: TROPONIN I < 0.017 ng/mL (0.00-0.056)
--- NOTE | 2017-07-24 20:54 | NUR ---
UNABLE TO COLLECT URINE. DR. LLOYD AWARE
[2017-07-24 21:17] LABS: ALCOHOL, BLOOD < 3 mg/dL (0-0)
[2017-07-24 21:18] LABS: ACETAMINOPHEN < 2 ug/ml (10-30); SALICYLATE 0.5 mg/dL (2.8-20.0)
--- NOTE | 2017-07-24 21:29 | NUR ---
DR. LLOYD SPEAKING TO PT REGARDING RESULTS
--- NOTE | 2017-07-24 21:55 | NUR ---
ARMANDO IRIZARRY WAS PAGED
--- NOTE | 2017-07-24 22:45 | NUR ---
JUDY ROBERTSON (DAUGHTER) [phone]
--- NOTE | 2017-07-24 22:48 | NUR ---
ART AT BEDSIDE FOR EVAL. SCRATCH FINISHER JAGDISH AT BEDSIDE
--- NOTE | 2017-07-24 23:08 | NUR ---
PER ART OKAY TO D/C PT HOME.
--- NOTE | 2017-07-24 23:22 | NUR ---
[facility] HAS BEEN CALLED, ETA OF 35 MINUTES
--- NOTE | 2017-07-24 23:57 | NUR ---
REPORT GIVEN TO EMT FROM [facility], PT AWARE OF TRANSFER. PT WITH ALL PERSONAL BELONGINGS. VSS. PT TO BE TRANSFERRED BACK HOME VIA [facility].
[2017-07-25 00:05] VITALS: BP 154/73
== END 2017-07-25 00:05 | disposition home or self-care (01) ==
LOC: ER 19:01
DX: J06.9 Acute upper respiratory infection, unspecified (principal); R79.89 Other specified abnormal findings of blood chemistry; M79.604 Pain in right leg; E11.9 Type 2 diabetes mellitus without complications; F32.9 Major depressive disorder, single episode, unspecified; G89.29 Other chronic pain; I10 Essential (primary) hypertension; M19.90 Unspecified osteoarthritis, unspecified site; Z90.89 Acquired absence of other organs
CPT/HCPCS: 36415; 71010; 72170; 80048; 80076; 80329; 84443; 84484; 85025; 85730; 87804; 93005; 96372; 99285; A4606; G0480 ×2; J1885; 87400; Z7610

== ENCOUNTER 2017-08-16 19:56 | Inpatient (IN) | payer MEDICAID, MEDICARE ==
[~2017-08-16] VITALS: Ht 152.4 cm; Wt 51.5 kg
--- NOTE | 2017-08-16 20:00 | NUR ---
TO BED 4 BIB PARAMEDICS C/O SORE THROAT LOW BACK PAIN RADIATING TO R LEG. PT AAOX4 NO ACUTE DISTRESS NOTED, RESP EVEN AND UNLABORED. PENDING ER MD PARADA.
[2017-08-16] MEDS ORDERED: ACETAMINOPHEN ES 500 MG TABLET PO ONE (20:30)
[2017-08-16] MEDS ORDERED: HYDROCODONE/APAP 5/325MG 1 EACH TABLET PO ONE ×2 (20:30→22:00)
[2017-08-16 20:33] LABS: BASOPHILS % (AUTO) 0.5 % (0.0-2.0); EOSINOPHILS # (AUTO) 0.2 /CMM (0.0-0.7); EOSINOPHILS % (AUTO) 3.2 % (0.0-6.0); HEMATOCRIT 37 % (33-45); HEMOGLOBIN 12.3 g/dL (11.5-14.8); LYMPHOCYTES % (AUTO) 31.6 % (20.0-44.0); MEAN CORPUSCULAR HEMOGLOBIN 28 PG (26.0-33.0); MEAN CORPUSCULAR HGB CONC 33 g/dl (31.0-36.0); MEAN CORPUSCULAR VOLUME 85 fL (82-100); MONOCYTES # (AUTO) 0.5 /CMM (0.1-1.30); MONOCYTES % (AUTO) 7.5 % (2.0-12.0); NEUTROPHILS # (AUTO) 3.5 /CMM (1.8-8.9); NEUTROPHILS % (AUTO) 57.2 % (43.0-81.0); PLATELET COUNT (AUTO) 246 /CMM (150-450); RDW COEFFICIENT OF VARIATION 15.1 (11.5-15.0); RED BLOOD CELL COUNT(AUTO) 4.33 MIL/uL (4.0-5.2); WHITE BLOOD COUNT (AUTO) 6.2 K/uL (4.3-11.0)
[2017-08-16 20:41] LABS: CALCIUM, SERUM 9.2 mg/dL (8.5-10.1); CARBON DIOXIDE 28 mmol/L (21-32); CHLORIDE 99 mmol/L (98-107); CREATININE 0.5 mg/dL (0.6-1.3); GLUCOSE 124 mg/dL (74-106); POTASSIUM 4.1 mmol/L (3.5-5.1); SODIUM SERUM 134 mmol/L (136-145); UREA NITROGEN, BLOOD 12 mg/dL (7-18)
[2017-08-16 20:44] LABS: INR 0.93 (0.87-1.13); PROTHROMBIN TIME 9.7 SECS (9.5-12.7)
--- NOTE | 2017-08-16 20:53 | NUR ---
PT TRANSPORTED TO RADIOLOGY FOR CT'S.
[2017-08-16 20:54] LABS: ALANINE AMINOTRANSFERASE 15 U/L (12-78); ALBUMIN 3.4 g/dL (3.4-5.0); ALKALINE PHOSPHATASE 87 U/L (46-116); ASPARTATE AMINOTRANSFERASE 19 U/L (15-37); BILIRUBIN,DIRECT 0.1 mg/dL (0.0-0.2); BILIRUBIN,TOTAL 0.3 mg/dL (0.2-1.0); TOTAL PROTEIN, SERUM 6.9 g/dL (6.4-8.2)
[2017-08-16] MEDS ORDERED: HYDROCODONE/APAP 5/325MG 1 EACH TABLET ONE (21:23)
--- NOTE | 2017-08-16 21:44 | NUR ---
CALLED [facility] ROLL MILL OPERATOR WAS PAGED.
[2017-08-16 21:56] LABS: APPEARANCE,URINE CLEAR (CLEAR); BILIRUBIN,URINE NEGATIVE (NEGATIVE); BLOOD, URINE NEGATIVE Ery/uL (NEGATIVE); COLOR,URINE YELLOW (YELLOW); KETONES,URINE NEGATIVE (NEGATIVE); LEUKOCYTE ESTERASE ,URINE NEGATIVE (NEGATIVE); NITRITE, URINE NEGATIVE (NEGATIVE); PH,URINE 5.5 (5.0-8.0); PROTEIN,URINE NEGATIVE (NEGATIVE); UGLUCOSE NEGATIVE (NEGATIVE); UROBILINOGEN,URINE 0.2 EU/dL (0.2)
[2017-08-16] MEDS ORDERED: ACETAMINOPHEN 325 MG TABLET PO PRN (22:30)
[2017-08-16] MEDS ORDERED: ONDANSETRON HCL/PF 4 MG/2 ML VIAL IVP PRN (22:30)
[2017-08-16] MEDS ORDERED: MORPHINE SULFATE INJ 2 MG/ML DISP.SYRIN IV PRN (22:30)
--- NOTE | 2017-08-16 22:42 | NUR ---
REPORT DEYSI TO COSTUME DRAPER. WILL TRABSPORT PT TO M/S 306.
[2017-08-16 23:00] VITALS: BP 119/57
--- NOTE | 2017-08-16 23:05 | NUR ---
MS/RN NOTES RECEIVED PT. FROM ER VIA MARLA. PT. IS AWAKE. ALERT AND ORIENTED X3. FRISIAN SPEAKING. BREATHING EVEN AND UNLABORED ON ROOM AIR. NO SOB, RESPIRATORY DISTRESS OR COMPLAINTS OF PAIN NOTED AT THIS TIME. ORIENTED PT. TO ROOM. PT. WITH LEFT AC 18 GAUGE IV SALINE LOCK PRESENT, PATENT AND INTACT. PT. DAUGHTER PRESENT AT BEDSIDE. BED LOCKED AND IN LOWEST POSITION, SIDE RAILS UP X3, CALL LIGHT WITHIN REACH, WILL CONTINUE TO MONITOR.
[2017-08-17] MEDS: BLOOD SUGAR DIAGNOSTIC 1 EACH STRIP IN SCH ×3 (06:41→16:33)
--- NOTE | 2017-08-17 06:55 | NUR ---
MS/RN NOTES PT. IS LYING IN BED RESTING. BREATHING EVEN AND UNLABORED ON ROOM AIR. NO SOB, RESPIRATORY DISTRESS OR COMPLAINTS OF PAIN NOTED AT THIS TIME. PT. WITH LEFT AC 18 GAUGE IV SALINE LOCK PRESENT, PATENT AND INTACT. ALL PT. NEEDS MET. BED LOCKED AND IN LOWEST POSITION, SIDE RAILS UP X3, CALL LIGHT WITHIN REACH, WILL ENDORSE TO DAYSHIFT NURSE FOR CONTINUITY CARE.
--- NOTE | 2017-08-17 07:15 | NUR ---
RN INITIAL NOTES RECEIVED PATIENT IN BED, ASLEEP BUT EASILY AROUSABLE, NOTED WITH NO SOB, NO C/O PAIN AT THIS TIME, NO SIGNS AND SYMPTOMS OF ACUTE DISTRESS, ALERT AND ORIENTED X3, ABLE TO MAKE NEEDS KNOWN. ALL PATIENT'S NEEDS ATTENDED TO. CALL LIGHT PLACED WITHIN EASY REACH. WILL CONTINUE TO MONITOR.
[2017-08-17 08:00] VITALS: BP 128/55
[2017-08-17] MEDS ORDERED: Medication Not On Formulary EA (Omeprazole 20 MG) PO SCH (09:00)
[2017-08-17] MEDS ORDERED: SYSTANE ULTRA OP SCH (09:00)
[2017-08-17] MEDS ORDERED: LEVOFLOXACIN (500MG) 500 MG TABLET PO SCH (09:00)
[2017-08-17] MEDS: glipiZIDE 10 MG TABLET PO SCH ×2 (09:24→16:33)
[2017-08-17] MEDS: PANTOPRAZOLE 40 MG TABLET.DR PO SCH (09:24)
[2017-08-17] MEDS: HYDROCODONE/APAP 5/325MG 1 EACH TABLET PO PRN (09:46)
[2017-08-17] MEDS: TIMOLOL MAL/DORZOLAM HCL OPHTH 10 ML BOTTLE EACHEYE SCH ×2 (09:49→16:34)
[2017-08-17] MEDS: SYSTANE ULTRA OP SCH ×3 (09:50→16:34)
--- NOTE | 2017-08-17 10:05 | NUR ---
RN NOTES PATIENT SEEN AND EXAMINED BY DR. YADIRA TYLER WITH NEW ORDER FOR PT EVALUATION FOR RECOMMENDATION OF BRACE. INFORMED MD THAT PATIENT REFUSED BLOOD DRAW FOR THIS MORNING AND ACCUCHECK DUE AT 9AM.
[2017-08-17] MEDS ORDERED: methylPREDNISolone DOSPAK(4MG) 1 PACK TAB.DS.PK PO ONE (15:30)
[2017-08-17 16:00] VITALS: BP 124/60
[2017-08-17] MEDS ORDERED: methylPREDNISolone (4MG) 4 MG TABLET (DAY #1) PO ONE (16:00)
[2017-08-17] MEDS: GABAPENTIN 100 MG CAPSULE PO SCH (16:33)
--- NOTE | 2017-08-17 16:33 | NUR ---
RN NOTE PATIENT'S BLOOD SUGAR @ 113 MG/DL. WILL CONTINUE TO MONITOR PT.
[2017-08-17] MEDS ORDERED: methylPREDNISolone (4MG) 4 MG TABLET (DAY #1, BEFORE DINNER) PO ONE (17:30)
[2017-08-17] MEDS: NAPROXEN 375 MG TABLET.DR PO SCH (17:49)
--- NOTE | 2017-08-17 18:30 | NUR ---
RN CLOSING NOTES PATIENT UP IN BED, AWAKE, ALERT AND ORIENTED X 3, NO SOB, BREATHING EVEN AND UNLABORED, NO C/O PAIN AT THIS TIME, NO S/S OF ACUTE DISTRESS. ALL PATIENT'S NEEDS ATTENDED TO. BED PLACED ON LOW POSITION, LOCKED IN PLACE.
--- NOTE | 2017-08-17 19:25 | NUR ---
MS/RN NOTES RECEIVED PT. LYING IN BED RESTING. PT. IS EASILY AROUSABLE TO NAME. BREATHING EVEN AND UNLABORED ON ROOM AIR. NO SOB, RESPIRATORY DISTRESS OR COMPLAINTS OF PAIN NOTED AT THIS TIME. PT. WITH LEFT AC 18 GAUGE IV SALINE LOCK PRESENT, PATENT AND INTACT. BED LOCKED AND IN LOWEST POSITION, SIDE RAILS UP X3, CALL LIGHT WITHIN REACH, WILL CONTINUE TO MONITOR.
[2017-08-17 20:00] VITALS: BP 128/92
[2017-08-17] MEDS ORDERED: LATANOPROST EYE DROP 0.005% 2.5 ML BOTTLE EACHEYE SCH (22:00)
[2017-08-17] MEDS ORDERED: methylPREDNISolone (4MG) 4 MG TABLET (DAY #1, HS) PO ONE (22:00)
--- NOTE | 2017-08-18 06:28 | NUR ---
MS/RN NOTES PT. IS LYING IN BED RESTING. BREATHING EVEN AND UNLABORED ON ROOM AIR. NO SOB, RESPIRATORY DISTRESS OR COMPLAINTS OF PAIN NOTED AT THIS TIME. PT. WITH LEFT AC 18 GAUGE IV SALINE LOCK PRESENT, PATENT AND INTACT. ALL PT. NEEDS MET. ALL DUE MEDICATIONS GIVEN. BED LOCKED AND IN LOWEST POSITION, SIDE RAILS UP X3, CALL LIGHT WITHIN REACH, WILL ENDORSE TO DAYSHIFT NURSE FOR CONTINUITY OF CARE.
[2017-08-18] MEDS ORDERED: methylPREDNISolone (4MG) 4 MG TABLET (DAY#2 ACB) PO ONE (07:30)
--- NOTE | 2017-08-18 07:35 | NUR ---
RN NOTES RECEIVED PT AWAKE IN BED, COMFORTABLE, BREATHING EVEN AND UNLABORED, NOTED WITH NO FACIAL GRIMACING, NO C/O PAIN AT THIS TIME. ALL PATIENT'S NEEDS ATTENDED TO. CALL LIGHT PLACED WITHIN EASY REACH. WILL CONTINUE TO MONITOR.
[2017-08-18 08:00] VITALS: BP 116/72
[2017-08-18] MEDS: NAPROXEN 375 MG TABLET.DR PO SCH (08:03)
[2017-08-18] MEDS: GABAPENTIN 100 MG CAPSULE PO SCH ×2 (08:03→12:23)
[2017-08-18] MEDS: PANTOPRAZOLE 40 MG TABLET.DR PO SCH (08:03)
[2017-08-18] MEDS: TIMOLOL MAL/DORZOLAM HCL OPHTH 10 ML BOTTLE EACHEYE SCH (08:04)
[2017-08-18] MEDS: SYSTANE ULTRA OP SCH ×2 (08:04→12:23)
[2017-08-18] MEDS: BLOOD SUGAR DIAGNOSTIC 1 EACH STRIP IN SCH (09:00)
--- NOTE | 2017-08-18 09:30 | NUR ---
RN NOTES PATIENT REFUSED BLOOD SUGAR TO BE CHECKED, EXPLAINED RISKS AND BENEFITS WITH HELP OF A WET SANDER BUT PATIENT STILL REFUSED. PT DENIES DIZZINESS, NO DIAPHORESIS, NO SOB. NO SIGNS AND SYMPTOMS OF HYPOGLYCEMIA OR HYPERGLYCEMIA.WILL CONTINUE TO MONITOR.
[2017-08-18] MEDS: HYDROCODONE/APAP 5/325MG 1 EACH TABLET PO PRN (09:33)
[2017-08-18] MEDS: glipiZIDE 10 MG TABLET PO SCH (09:34)
[2017-08-18] MEDS ORDERED: METH4TAB16 PO (11:19)
[2017-08-18] MEDS ORDERED: GABA100C PO (11:19)
--- NOTE | 2017-08-18 12:00 | NUR ---
RN MS NOTES PT IN BED, DENIES PAIN, NOT IN DISTRESS, PT EVAL DONE, DR. MAY INFORMED, DISCHARGE ORDER GIVEN, PT AND DAUGHTER JUDY INFORMED, VERBALIZED UNDERSTANDING, ASSISTED PT WITH ADL'S.
[2017-08-18] MEDS ORDERED: methylPREDNISolone (4MG) 4 MG TABLET (DAY#2,PC LUNCH) PO ONE (12:30)
[2017-08-18 16:00] VITALS: BP 101/54
--- NOTE | 2017-08-18 16:47 | NUR ---
RN MS NOTES PT IN BED, AWAKE, ALERT AND ORIENTED, DISCHARGE AND MEDICATION INSTRUCTIONS PROVIDED TO PT THROUGH A FAMILY MEMBER VARNISH MELTER HELPER, PT VERBALIZED UNDERSTANDING, PER DAUGHTER, SHE TOOK ALL HER MOTHER'S BELONGINGS, PT SIGNED DISCHARGE PAPERS, REPORT GIVEN TO DARIEN MELENDREZ OF [facility], PICKED UP BY 2 AMBULANCE PERSONNEL, LEFT VIA GUNEY IN STABLE CONDITION, PT'S DAUGHTER JUDY INFORMED OF PT'S TRANSFER.
[2017-08-18] MEDS ORDERED: methylPREDNISolone (4MG) 4 MG TABLET (DAY#2, PC DINNER) PO ONE (17:30)
[2017-08-18] MEDS ORDERED: methylPREDNISolone (4MG) 4 MG TABLET (DAY#2, HS) PO ONE (21:00)
[2017-08-19] MEDS ORDERED: methylPREDNISolone (4MG) 4 MG TABLET (DAY#3,ACB) PO ONE (07:30)
[2017-08-19] MEDS ORDERED: methylPREDNISolone (4MG) 4 MG TABLET (DAY#3,PC LUNCH) PO ONE (12:30)
[2017-08-19] MEDS ORDERED: methylPREDNISolone (4MG) 4 MG TABLET (DAY#3,PC DINNER) PO ONE (17:30)
[2017-08-19] MEDS ORDERED: methylPREDNISolone (4MG) 4 MG TABLET (DAY#3, HS) PO ONE (22:00)
[2017-08-20] MEDS ORDERED: methylPREDNISolone (4MG) 4 MG TABLET (DAY #4, ACB) PO ONE (07:30)
[2017-08-20] MEDS ORDERED: methylPREDNISolone (4MG) 4 MG TABLET (DAY #4, PC LUNCH) PO ONE (12:30)
[2017-08-20] MEDS ORDERED: methylPREDNISolone (4MG) 4 MG TABLET (DAY#4 HS) PO ONE (22:00)
[2017-08-21] MEDS ORDERED: methylPREDNISolone (4MG) 4 MG TABLET (DAY#5, ACB) PO ONE (07:30)
[2017-08-21] MEDS ORDERED: methylPREDNISolone (4MG) 4 MG TABLET (DAY#5,HS) PO ONE (22:00)
[2017-08-22] MEDS ORDERED: methylPREDNISolone (4MG) 4 MG TABLET (DAY#6,ACB) PO ONE (07:30)
== END 2017-08-18 16:45 | DRG 347 ==
LOC: ER 20:07 → MED 22:25
PROVIDERS: ADMIT Nurse Practitioner Acute Care; ATTEND Nurse Practitioner Acute Care
DX: M48.061 Spinal stenosis, lumbar region without neurogenic claudication (principal); I11.0 Hypertensive heart disease with heart failure; I50.32 Chronic diastolic (congestive) heart failure; F03.90 Unspecified dementia, unspecified severity, without behavioral disturbance, psychotic disturbance, mood disturbance, and anxiety; E11.51 Type 2 diabetes mellitus with diabetic peripheral angiopathy without gangrene; M54.16 Radiculopathy, lumbar region; Z90.49 Acquired absence of other specified parts of digestive tract; E11.65 Type 2 diabetes mellitus with hyperglycemia; I69.351 Hemiplegia and hemiparesis following cerebral infarction affecting right dominant side; I25.10 Atherosclerotic heart disease of native coronary artery without angina pectoris; M06.9 Rheumatoid arthritis, unspecified; Z98.890 Other specified postprocedural states; Z79.84 Long term (current) use of oral hypoglycemic drugs; M19.90 Unspecified osteoarthritis, unspecified site; Z79.899 Other long term (current) drug therapy; Z82.49 Family history of ischemic heart disease and other diseases of the circulatory system; K46.9 Unspecified abdominal hernia without obstruction or gangrene; E78.5 Hyperlipidemia, unspecified; J06.9 Acute upper respiratory infection, unspecified; M51.47 Schmorl's nodes, lumbosacral region; M51.27 Other intervertebral disc displacement, lumbosacral region; M19.012 Primary osteoarthritis, left shoulder; M19.011 Primary osteoarthritis, right shoulder; I08.0 Rheumatic disorders of both mitral and aortic valves; M48.04 Spinal stenosis, thoracic region; M80.88XA Other osteoporosis with current pathological fracture, vertebra(e), initial encounter for fracture; Z87.310 Personal history of (healed) osteoporosis fracture; R53.81 Other malaise; M48.02 Spinal stenosis, cervical region; I27.20 Pulmonary hypertension, unspecified; E87.1 Hypo-osmolality and hyponatremia
CPT/HCPCS: 36415; 70450-TC; 71010-TC; 72125-TC; 72131-TC; 80048-TC; 80076-TC; 81000-TC; 82962-TC; 85025-TC; 85730-TC; A4606; J7509; Z7610

== ENCOUNTER 2017-12-24 22:45 | Inpatient (IN) | payer OTHER, MEDICARE ==
[~2017-12-24] VITALS: Ht 152.4 cm; Wt 48.5 kg
[~2017-12-24 22:45] MED LIST changes: +GABA100C PO; -LEVO500T15 PO; +METH4TAB16 PO; +OMEP20TA5 PO; -OMEP20TA68 PO
--- NOTE | 2017-12-24 23:00 | NUR ---
PT BIB PA WITH A C/O N/V CLEAR FLUID WITH ABD PAIN. PT TAKEN TO ROOM #15 AND TRIAGED.
--- NOTE | 2017-12-24 23:15 | NUR ---
PT LEFT FOR CT.
[2017-12-24] MEDS ORDERED: ONDANSETRON HCL/PF 4 MG/2 ML VIAL ONE (23:17)
[2017-12-24] MEDS ORDERED: MORPHINE SULFATE INJ 4 MG/ML DISP.SYRIN ONE (23:17)
[2017-12-24] MEDS ORDERED: ONDANSETRON HCL/PF 4 MG/2 ML VIAL IVP ONE (23:30)
[2017-12-24] MEDS ORDERED: IV NS 0.9% 1,000 ML BAG IV ONE (23:30)
[2017-12-24] MEDS ORDERED: MORPHINE SULFATE INJ 2 MG/ML DISP.SYRIN IV ONE (23:30)
--- NOTE | 2017-12-24 23:38 | NUR ---
PT RETURNED FROM CT.
[2017-12-24 23:50] LABS: HEMATOCRIT 41 % (33-45); HEMOGLOBIN 13.6 g/dL (11.5-14.8); LYMPHOCYTES % (AUTO) 5.1 % (20.0-44.0); MEAN CORPUSCULAR HEMOGLOBIN 28 PG (26.0-33.0); MEAN CORPUSCULAR HGB CONC 33 g/dl (31.0-36.0); MEAN CORPUSCULAR VOLUME 83 fL (82-100); NEUTROPHILS % (AUTO) 91.5 % (43.0-81.0); PLATELET COUNT (AUTO) 258 /CMM (150-450); RDW COEFFICIENT OF VARIATION 14.7 (11.5-15.0); WHITE BLOOD COUNT (AUTO) 18.4 K/uL (4.3-11.0)
[2017-12-24 23:51] LABS: BASOPHILS % (AUTO) 0.2 % (0.0-2.0); EOSINOPHILS % (AUTO) 0.2 % (0.0-6.0); LYMPHOCYTES # (AUTO) 0.9 /CMM (0.8-4.8); MONOCYTES # (AUTO) 0.5 /CMM (0.1-1.30); NEUTROPHILS # (AUTO) 16.9 /CMM (1.8-8.9)
[2017-12-25] VITALS (7 sets, daily range): BP systolic 102–111; BP diastolic 52–70
[2017-12-25 00:08] LABS: CALCIUM, SERUM 9.8 mg/dL (8.5-10.1); CARBON DIOXIDE 22 mmol/L (21-32); CHLORIDE 95 mmol/L (98-107); CREATININE 0.6 mg/dL (0.6-1.3); GLUCOSE 122 mg/dL (74-106); POTASSIUM 4.7 mmol/L (3.5-5.1); SODIUM SERUM 130 mmol/L (136-145); UREA NITROGEN, BLOOD 21 mg/dL (7-18)
[2017-12-25 00:09] LABS: TROPONIN I < 0.017 ng/mL (0.00-0.056)
[2017-12-25 00:13] LABS: ALANINE AMINOTRANSFERASE 16 U/L (12-78); ALBUMIN 3.2 g/dL (3.4-5.0); ALKALINE PHOSPHATASE 70 U/L (46-116); ASPARTATE AMINOTRANSFERASE 17 U/L (15-37); BILIRUBIN,DIRECT 0.2 mg/dL (0.0-0.2); BILIRUBIN,TOTAL 0.9 mg/dL (0.2-1.0); INR 0.95 (0.87-1.13); LIPASE 137 U/L (73-393); TOTAL PROTEIN, SERUM 7.1 g/dL (6.4-8.2)
[2017-12-25] MEDS ORDERED: FLAGYL/NS RTU 500 MG/100 ML PIGGYBACK IV ONE (00:30)
[2017-12-25] MEDS ORDERED: CIPROFLOXACIN IV RTU 400 MG in PREMIX 1 EA IV SCH (00:30)
[2017-12-25 00:32] LABS: APPEARANCE,URINE CLOUDY (CLEAR); BILIRUBIN,URINE 2+ (NEGATIVE); BLOOD, URINE NEGATIVE Ery/uL (NEGATIVE); COLOR,URINE DARK YELLO (YELLOW); KETONES,URINE TRACE (NEGATIVE); LEUKOCYTE ESTERASE ,URINE 1+ (NEGATIVE); NITRITE, URINE POSITIVE (NEGATIVE); PH,URINE 5.5 (5.0-8.0); PROTEIN,URINE NEGATIVE (NEGATIVE); UGLUCOSE NEGATIVE (NEGATIVE); UROBILINOGEN,URINE 0.2 EU/dL (0.2)
[2017-12-25] MEDS ORDERED: METRONIDAZOLE 500MG/ NS 100ML 100 ML IV ONE (00:32)
[2017-12-25 00:44] LABS: RBC,URINE 0-2 /HPF (0-2)
[2017-12-25 00:45] LABS: BACTERIA,URINE Many /HPF (None Seen); WBC,URINE 21-50 /HPF (0-3)
[2017-12-25 00:46] LABS: SQUAMOUS EPITHELIAL CELL,UR Many /HPF (None Seen)
--- NOTE | 2017-12-25 00:56 | NUR ---
REPORT GIVEN TO ANEESH MARIN
[2017-12-25] MEDS ORDERED: Z GUARD REMEDY 2 OZ OINT TP PRN (01:00)
[2017-12-25] MEDS ORDERED: LEVOFLOXACIN 500 MG /D5W 100ML 500 MG in PREMIX 1 EA IV SCH (01:00)
[2017-12-25] MEDS ORDERED: ZOLPIDEM TARTRATE 5 MG TABLET PO PRN (01:00)
[2017-12-25] MEDS ORDERED: ACETAMINOPHEN 325 MG TABLET PO PRN (01:00)
--- NOTE | 2017-12-25 01:00 | NUR ---
RN NOTES: PER REPORT GIVEN BY SHANKAR FROM ER, CIPRO IV IS NOT AVAILABLE IN ER NOR IN ANY OTHER DEPARTMENT AT THIS TIME, WILL BE GIVEN ONCE MADE AVAILABLE BY PHARMACY.
--- NOTE | 2017-12-25 01:05 | NUR ---
CUSTOMER EXPERT ADMITTING NOTES: ADMITTED AN 87 YO FEMALE PATIENT WHO WAS BROUGHT TO THE ER DUE TO ABDOMINAL PAIN AND VOMITING FROM [facility]. PATIENT WAS BROUGHT TO TELE FLOOR VIA GEETHA GUTIÉRREZ, FIJIAN SPEAKING, PATIENT'S DAUGHTER AT BEDSIDE TO HELP TRANSLATE AND ASSESS LOC. ON ROOM AIR, BREATHING EVEN AND UNLABORED. BREATH SOUNDS CLEAR TO AUSCULTATION. APPEARS CALM, BUT STATES SHE HAS ABDOMINAL PAIN AT 4-5/10 OVER EPIGASTRIC AREA. ABDOMEN APPEARS LIGHTLY DISTENDED, BUT STILL SOFT, NO REBOUND TENDERNESS NOTED. BOWEL SOUNDS HYPOACTIVE. PIV OVER L HAND G 20 INTACT AND INFUSING WITH FLAGYL IV STARTED IN ER. PLACED ON TELE MONITORING: SINUS RHYTHM AT RATE OF 80S WITH BBB. ADMITTING CARE DONE. PROVIDED FOR COMFORT AND SAFETY. BED IN LOWEST AND LOCKED POSITION, SIDERAILS UP X 3, CALL LIGHT WITHIN REACH. WILL CONT TO MONITOR.
--- NOTE | 2017-12-25 01:47 | NUR ---
RN NOTES: INSERTED NGT FR 16 OVER LEFT NARES, WITH IMMEDIATE ASPIRATION OF GREENISH FLUID. CXR ALSO ORDERED TO CONFIRM PLACEMENT. Addendum: 12/25/17 at 0425 by MISTY ABURTO RN ADDITIONAL NOTES: NGT INSERTED MARKED 56 AT LEVEL OF LEFT NARES. PLACEMENT ALSO CONFIRMED WITH CXR.
--- NOTE | 2017-12-25 02:00 | NUR ---
RN NOTES: SPOKE TO DR LUI RE ORDER FOR IV FLUID 1/2 NS TO RUN AT 75 ML/HR, SINCE SERUM NA IS 130, AND PATIENT IS NPO. PER MD, CURRENT IV FLUID ORDER IS OK.
[2017-12-25] MEDS: IV 1/2NS 1000 ML 1,000 ML IV PRN ×2 (02:22→20:22)
[2017-12-25] MEDS ORDERED: LEVOFLOXACIN 500 MG /D5W 100ML 100 ML IV ONE (04:16)
--- NOTE | 2017-12-25 05:37 | NUR ---
RN NOTES: PATIENT PULLED OUT HER NGT. FARNAZ ALVARADO, AT BEDSIDE TO HELP WITH TRANSLATION. WHEN ASKED WHY SHE DID IT, SHE SAID SHE DOES NOT WANT IT ANYMORE, IT IS VERY UNCOMFORTABLE FOR HER NOSE, AND THAT SHE NO LONGER FEELS NAUSEOUS. SHE ALSO STATES THAT SHE DOES NOT HAVE ANY ABDOMINAL PAIN ANYMORE. RISKS AND BENEFITS WERE EXPLAINED, EVEN SHOWED AMOUNT OF DRAINAGE IN COLLECTION BOTTLE. PATIENT STILL ADAMANTLY REFUSED. WILL INFORM MD. Addendum: 12/25/17 at 0541 by MISTY ABURTO RN ADDITIONAL NOTES: NOTED 600 ML OF GREENISH GASTRIC ASPIRATE IN COLLECTION BOTTLE.
--- NOTE | 2017-12-25 06:30 | NUR ---
RN NOTES: INFORMED DR LUI THAT PATIENT PULLED OUT HER NGT AND THAT SHE KEEPS REFUSING TO HAVE IT REINSERTED , BUT THAT 600 ML WAS COLLECTED FOR THE 4 HRS THAT THE NGT WAS IN. PER DR LUI, IT IS IMPORTAN TO HAVE THE NGT REINSERTED, AND ASKED FOR THE PATIENT'S DAUGHTER TO BE CALLED TO TALK TO PATIENT. TALKED TO PATIENT AGAIN AND EXPLAINED BENEFITS AND INDICATION OF NGT TO LIS, PATIENT APPEARS UPSET AND STILL REFUSING.
--- NOTE | 2017-12-25 06:35 | NUR ---
RN NOTES: PT'S DAUGHTER, JUDY WAS CALLED TO INFORM HER THAT PATIENT PULLED OUT NGT, AND THAT MD RECOMMENDS IT TO BE REINSERTED BACK, AND ASKED FOR HER TO TRY AND HELP NURSE TO EXPLAIN THIS TO PATIENT. PER DAUGHTER, SHE WILL BE COMING TO [facility] LATER THIS AM.
--- NOTE | 2017-12-25 06:42 | NUR ---
MS RN CLOSING NOTES: PATIENT IN BED, AOX4, ON ROOM AIR, BREATHING EVEN AND UNLABORED. APPEARS CALM AND IN NO DISTRESS, DENIES ABDL PAIN OR NAUSEA. STILL REFUSING NGT TO BE REINSERTED. ON TELE MONITORING: SINUS RHYTHM 80S WITH BBB. MAINTAINED ON NPO. PIV OVER LEFT HAND G20 INTACT AND INFUSING WELL WITH 1/2 NS RUNNING AT 75 ML/HR. DUE MEDS GIVEN. PROVIDED FOR COMFORT AND SAFETY. BED IN LOWEST AND LOCKED POSITION, SIDERAILS UP X 3, CALL LIGHT WITHIN REACH. MAINTAINED NPO. WILL ENDORSE TO AM RN FOR PORTIA.
--- NOTE | 2017-12-25 07:40 | NUR ---
received pt. in am alert and oriented x4.peruvian speaking only.denies nausea,iv infusing.with interpreter translator rn attempting to insert ng tube,pt.flatly refusing.
--- NOTE | 2017-12-25 08:30 | NUR ---
dr. mihaela banks contacted and orders given regarding pt,s refusal of ng insertion aware of status regards to pt. pulling out ng at 0500 am today.orders given.
[2017-12-25] MEDS ORDERED: LORAZEPAM 0.5 MG TABLET PO PRN (10:30)
--- NOTE | 2017-12-25 11:02 | NUR ---
medicated with ativan po.
--- NOTE | 2017-12-25 11:35 | NUR ---
rn again attempted ng insertion-pt. refusing.dr. banks contacted.
[2017-12-25] MEDS: ONDANSETRON HCL/PF 4 MG/2 ML VIAL IVP PRN ×2 (14:33→23:09)
[2017-12-25] MEDS: PANTOPRAZOLE 40 MG VIAL IV SCH (14:37)
--- NOTE | 2017-12-25 15:30 | NUR ---
bayron álvarez's junk dealer here and aware of pt. status,medicated with zofran and protonix.
[2017-12-25] MEDS ORDERED: DIATR MEGLU/DIATRIZOATE SODIUM 120 ML BOTTLE (GASTROGRAPHIN) ONE ×2 (16:15→18:03)
--- NOTE | 2017-12-25 17:00 | NUR ---
down for small bowel follow through.
--- NOTE | 2017-12-25 19:00 | NUR ---
last film taken and few minutes later dtr. calling rn in to rm.pt. vomiting lrg amt. brownish colored emesis.fire extinguisher charger in to rm. and family present now stating pt. will accept ng.reassured oncoming rn will place ng tube.pt. immediately clearing throat,hob elevated.pox 99%.alert and oriented.
[2017-12-25] MEDS: METRONIDAZOLE 500MG/ NS 100ML 500 MG in PREMIX 1 EA IV SCH (19:10)
--- NOTE | 2017-12-25 19:40 | NUR ---
RN MS OPENING NOTES RECEIVED PATIENT IN BED,RESPIRATIONS EVEN AND UNLABORED, NO COMPLAINTS OF PAIN OR DISCOMFORT AT THIS TIME, IV SITE TO LEFT HAND 20 GAUGE INTACT AND PATENT, NO REDNESS , NO INFILTRATION TO SITE, IVF FLUID RUNNING ORDERED, SAFETY ,MEASURES IN PLACE, CALL LIGHT KEPT WITHIN REACH, PATIENT IS CURRENTLY NPO ,PER NIECE PATIENT IS REFUSING FOR NGT REINSERTION.EXPLAINED RISKS AND BENEFITS WILL CONTINUE TO MONITOR.
--- NOTE | 2017-12-25 21:19 | NUR ---
RN NOTES NIECE TALKED TO ME AND ASKED ME TO PUT AN NG-TUBE ON HER GRANDMOTHER AND WANTS TO PUT RESTRAINTS ON HER , CALLED AN SPECIAL PROJECTS COORDINATOR FOR THE PT. WHO ONLY SPEAK ERITREAN.. EXPLAINED TO THE PT NIECE WHILE MISTY OUR DESCRIPTIVE CATALOG LIBRARIAN INTERPRETING IN ERITREAN THAT WE CANNOT INSERT AND NG-TUBE TO THE PT. IF THE PT IS REFUSING SPECIALLY THE PT. IS A/OX4, AND WE DON'T PUT PT ON RESTRAINTS JUST BECAUSE IS PULLING HER NG-TUBE, PT IS A/OX4, AND CAN DECIDE FOR HERSELF, IT'S AGAINST PT.'S RIGHTS. PATIENT IS EVEN TELLING HER NIECE TO STOP TALKING TOO MUCH AND PT. EVEN TOLD ME TO PUT THE NG-TUBE TO HER NIECE. TALKED TO THE PT. AND MAKE A DEAL THAT IF SHE VOMIT AGAIN WE'RE GOING TO PUT AN NG-TUBE AND PT. AGREED. CHECK PT. ABDOMEN, IT'S SOFT AND PT. DENIES PAIN AND NO VOMITING AT THIS TIME
--- NOTE | 2017-12-25 23:10 | NUR ---
RN NOTES PT VOMITED AGAIN, PT AGREED TO REINSERT NG-TUBE, GREENISH OUTPUT CAME OUT.. , WILL CONTINUE TO MONITOR
--- NOTE | 2017-12-25 23:13 | NUR ---
RN MS NOTES PATIENT HAD ONE EPISODE OF VOMITING, NG TUBE REINSERTED WITH 1,000 ML OUTPUT GREEN IN COLOR, ZOFRAN PRN GIVEN. WILL CONTINUE TO MONITOR.
--- NOTE | 2017-12-26 00:49 | NUR ---
RN MS NOTES NGT NOTES 1,200 CC OUTPUT GREEN , IN COLOR, PATIENT IS COMFORTABLE , NO COMPLAIN OF PAIN OR DISCOMFORT ,SLEEPING AT THIS TIME.
[2017-12-26] MEDS: METRONIDAZOLE 500MG/ NS 100ML 500 MG in PREMIX 1 EA IV SCH ×3 (01:02→18:03)
[2017-12-26] MEDS: LEVOFLOXACIN 250 MG /D5W 50 ML 250 MG in PREMIX 1 EA IV SCH (04:04)
[2017-12-26 06:15] LABS: CHOLESTEROL 140 mg/dL (<200); HDL CHOLESTEROL 63 mg/dL (40-60); LDL 72 mg/dL (0-99); TRIGLYCERIDES 45 mg/dL (30-150)
[2017-12-26 06:16] LABS: ALANINE AMINOTRANSFERASE 14 U/L (12-78); ALBUMIN 2.7 g/dL (3.4-5.0); ALKALINE PHOSPHATASE 56 U/L (46-116); ASPARTATE AMINOTRANSFERASE 17 U/L (15-37); BILIRUBIN,TOTAL 0.7 mg/dL (0.2-1.0); CARBON DIOXIDE 23 mmol/L (21-32); CHLORIDE 99 mmol/L (98-107); CREATININE 0.6 mg/dL (0.6-1.3); GLUCOSE 111 mg/dL (74-106); MAGNESIUM 1.8 mg/dL (1.8-2.4); PHOSPHORUS 3.6 mg/dL (2.5-4.9); SODIUM SERUM 131 mmol/L (136-145); TOTAL PROTEIN, SERUM 6.6 g/dL (6.4-8.2); UREA NITROGEN, BLOOD 23 mg/dL (7-18)
[2017-12-26 06:22] LABS: BASOPHILS % (AUTO) 0.1 % (0.0-2.0); EOSINOPHILS # (AUTO) 0.1 /CMM (0.0-0.7); EOSINOPHILS % (AUTO) 0.7 % (0.0-6.0); HEMATOCRIT 37 % (33-45); HEMOGLOBIN 12.5 g/dL (11.5-14.8); LYMPHOCYTES # (AUTO) 1.2 /CMM (0.8-4.8); LYMPHOCYTES % (AUTO) 12.5 % (20.0-44.0); MEAN CORPUSCULAR HEMOGLOBIN 28 PG (26.0-33.0); MEAN CORPUSCULAR HGB CONC 34 g/dl (31.0-36.0); MEAN CORPUSCULAR VOLUME 83 fL (82-100); MONOCYTES # (AUTO) 0.7 /CMM (0.1-1.30); MONOCYTES % (AUTO) 7.3 % (2.0-12.0); NEUTROPHILS # (AUTO) 7.8 /CMM (1.8-8.9); NEUTROPHILS % (AUTO) 79.4 % (43.0-81.0); PLATELET COUNT (AUTO) 198 /CMM (150-450); RDW COEFFICIENT OF VARIATION 14.8 (11.5-15.0); RED BLOOD CELL COUNT(AUTO) 4.41 MIL/uL (4.0-5.2); WHITE BLOOD COUNT (AUTO) 9.8 K/uL (4.3-11.0)
--- NOTE | 2017-12-26 06:55 | NUR ---
RN MS CLOSING NOTES PATIENT IN BED RESTING ,EASILY AROUSABLE, RESPIRATIONS EVEN AND UNLABORED, NG TUBE INTACT WITH INTERMITTENT SUCTION, NOTED GREEN IN COLOR, DENIES ANY COMPLAINTS OF PAIN OR DISCOMFORT AT THIS TIME, IV SITE TO LEFT HAND 20 GAUGE INTACT AND PATENT, IVF RUNNING ORDERED, NO REDNESS NO INFILTRATION TO SITE, REPOSITIONED TO OFFLOAD SACRAL REDNESS, SAFETY MEASURES IN PLACE, CALL LIGHT KEPT WITHIN REACH , WILL CONTINUE TO MONITOR AND ENDORSE TO NEXT SHIFT.
[2017-12-26 08:00] VITALS: BP 154/91
--- NOTE | 2017-12-26 08:00 | NUR ---
MS RN OPENING NOTES Patient found resting in bed AAOx3, breathing comfortably on RA with O2 sat 96%, no signs of acute distress. Patient has NG tube draining green fluid, positioned at #50 at the nares. Peripheral IV in left hand running 1/2 NS at 75 ml/hr. Bed in low/locked position, two side rails up, call rawls within reach. Will continue to monitor.
[2017-12-26] MEDS: IV 1/2NS 1000 ML 1,000 ML IV PRN (13:04)
[2017-12-26] MEDS: PANTOPRAZOLE 40 MG VIAL IV SCH (14:32)
[2017-12-26 16:00] VITALS: BP 112/69
[2017-12-26] MEDS: METOCLOPRAMIDE HCL 10 MG/2 ML VIAL IV SCH ×2 (16:13→22:43)
--- NOTE | 2017-12-26 18:33 | NUR ---
MS RN CLOSING NOTES Patient was see at bedside by Dr. Springre at approximately 1800. As per Dr. Springer, NG tube was removed with an output of 750 ml green drainage. Order for clear liquid diet. Abd x-ray this PM shows obstruction resolved. Patient remains resting comfortably in bed, AAOx3, breathing on RA, no signs or symptoms of acute distress, vital signs WNL. All medications administered, orders carried out, patient needs met. Peripheral IV in left hand is running Flagyl. Bed is in low/locked position, two side rails up, and call rawls within reach. Patient care to be endorsed to fast food shift lead nurse.
--- NOTE | 2017-12-26 19:40 | NUR ---
RN MS OPENING NOTES RECEIVED PATIENT IN BED AWAKE ALERT AND VERBALLY RESPONSIVE, RESPIRATIONS EVEN AND UNLABORED,DENIES ANY PAIN OR DISCOMFORT AT THIS TIME, DENIES NAUSEA AT THIS TIME, ON CLEAR LIQUID DIET TOLERATED,IV SITE TO LEFT HAND 20 GAUGE INTACT AND PATENT , NO REDNESS NO INFILTRATION TO SITE,IVF RUNNING ORDERED. ORIENTED TO STAFF, SAFETY MEASURES IN PLACE CALL LIGHT KEPT WITHIN REACH WILL CONTINUE TO MONITOR.
[2017-12-26 20:00] VITALS: BP 105/63
--- NOTE | 2017-12-26 20:30 | NUR ---
RN MS NOTES CALLED AND SPOKE TO SANIA HALEY REGARDING BOTH EYE ITCHINESS,REDNESS AND NOTED SLIGHT CRUST TO EYES, NEW ORDER NOTED AND CARRIED OUT, PATIENT MADE AWARE, PHARMACY CALLED TO NOTIFY OF NEW ORDER.
--- NOTE | 2017-12-26 20:30 | NUR ---
RN MS NOTES PER SANIA HALEY ORDERED TOBRADEX EYE DROPS 1 DROP TO BOTH EYES Q4HRS FOR 5DAYS.
[2017-12-26] MEDS: TOBRAMYCIN/DEXAMETH OPHTH DORPS 2.5 ML BOTTLE EACHEYE SCH (21:17)
[2017-12-27] MEDS: TOBRAMYCIN/DEXAMETH OPHTH DORPS 2.5 ML BOTTLE EACHEYE SCH ×6 (01:00→21:16)
[2017-12-27] MEDS: METRONIDAZOLE 500MG/ NS 100ML 500 MG in PREMIX 1 EA IV SCH ×3 (01:22→18:04)
[2017-12-27] MEDS: LEVOFLOXACIN 250 MG /D5W 50 ML 250 MG in PREMIX 1 EA IV SCH (04:38)
[2017-12-27] MEDS: IV 1/2NS 1000 ML 1,000 ML IV PRN ×2 (04:49→23:14)
[2017-12-27] MEDS: ONDANSETRON HCL/PF 4 MG/2 ML VIAL IVP PRN ×2 (04:59→12:45)
--- NOTE | 2017-12-27 04:59 | NUR ---
RN MS NOTES PATIENT COMPLAINT OF NAUSEA, OFFERED ZOFRAN PRN, PATIENT AGREED, GIVEN ORDERED, WILL CONTINUE TO MONITOR
--- NOTE | 2017-12-27 06:41 | NUR ---
RN MS CLOSING NOTES PATIENT IN BED AWAKE ALERT AND VERBALLY RESPONSIVE, RESPIRATIONS EVEN AND UNLABORED,DENIES ANY PAIN OR DISCOMFORT AT THIS TIME, ON CLEAR LIQUID DIET TOLERATED,IV SITE TO LEFT HAND 20 GAUGE INTACT AND PATENT , NO REDNESS NO INFILTRATION TO SITE,IVF RUNNING ORDERED, SAFETY MEASURES IN PLACE CALL LIGHT KEPT WITHIN REACH WILL CONTINUE TO MONITOR AND ENDORSE TO NEXT SHIFT.
--- NOTE | 2017-12-27 07:35 | NUR ---
MS RN OPENING NOTE PATIENT IS ALERT AND ORIENTED x3. NO PAIN AT THIS TIME. NO SOB OR DISTRESS NOTED. RESTING COMFORTABLY IN BED AT THIS TIME WITH CALL LIGHT WITHIN REACH. SAFETY MEASURES IMPLEMENTED. ABLE TO COMMUNICATE NEEDS. IV INTACT AND PATENT NO REDNESS OR SWELLING NOTED WITH IV FLUIDS RUNNING AND TOLERATING WELL. ON 2L/MIN VIA NASAL CANNULA. PER [employer] BPM ARCHITECT NURSE, HAD ONE EPISODE OF EMESIS ZOFRAN GIVEN. NO MORE EMESIS NOTED. WILL CONTINUE TO MONITOR THROUGHOUT SHIFT
[2017-12-27 08:00] VITALS: BP 119/82
[2017-12-27] MEDS: METOCLOPRAMIDE HCL 10 MG/2 ML VIAL IV SCH ×3 (08:18→23:14)
--- NOTE | 2017-12-27 11:55 | NUR ---
MS RN NOTE NOTIFIED MD ABOUT PATIENT HAVING ONE EPISODE OF DARK GREEN EMESIS. NO NEW ORDERS AT THIS TIME. WILL CONTINUE TO MONITOR THROUGHOUT SHIFT
--- NOTE | 2017-12-27 12:50 | NUR ---
MS RN NOTE PATIENT VOMITING DARK GREEN EMESIS. INFORMED MD, GI MD, AND SURGEON. PER SURGEON AND GI DOCTOR TO REINSERT NASOGASTRIC TUBE AND GET ANOTHER KUB TAKEN. PATIENT IS REFUSING NGT REINSERTION AT THIS TIME, PER PATIENT STATING " I DON'T WANT ANYMORE TUBES, I HAVE SOMETHING ELSE BUT NO TUBES PLEASE". INFORMED CHARGE NURSE AND MD. EXPLAINED RISKS AND BENEFITS OF NGT REINSERTION PATIENT STILL REFUSED. ZOFRAN 4MG IV GIVEN WILL MONITOR FOR FURTHER EPISODES, CURRENTLY NPO AT THIS TIME.
--- NOTE | 2017-12-27 13:00 | NUR ---
MS RN NOTE PATIENT HAD ANOTHER EPISODE OF EMESIS. DR. BARRAGAN MADE AWARE ABOUT PATIENT'S CONDITION, ORDERS TO REINSERT NG TUBE FROM GI WELL. CHARGE NURSE SPOKE WITH FAMILY AND PATIENT STILL DECIDING ABOUT NGT INSERTION. WILL CONTINUE TO MONITOR
--- NOTE | 2017-12-27 15:00 | NUR ---
MS RN NOTE PATIENT CONSENTED TO HAVE NGT REINSERTED. NGT INSERTED, PATIENT TOLERATED WELL. PLACEMENT CHECKED WITH CHEST X-RAY AND PLACED ON LOW INTERMITTENT SUCTION. NPO AT THIS TIME WILL CONTINUE TO MONITOR THROUGHOUT SHIFT.
[2017-12-27] MEDS: PANTOPRAZOLE 40 MG VIAL IV SCH (15:42)
[2017-12-27 16:00] VITALS: BP 115/64
[2017-12-27] MEDS: CEFTRIAXONE 1 G in IV D5W 50 ML IV SCH (16:44)
--- NOTE | 2017-12-27 18:31 | NUR ---
MS RN CLOSING NOTE PATIENT IS ALERT AND ORIENTED X3. NO PAIN AT THIS TIME. PATIENT DOES HAVE DISCOMFORT AT NGT SITE BUT DOES NOT COMPLAIN OF SEVERE PAIN. NO SOB NOTED. IV INTACT AND PATENT WITH IV FLUIDS RUNNING AT THIS TIME TOLERATING WELL. ON ROOM AIR AT THIS TIME TOLERATING AT 97%. NPO AT THIS TIME. NGT IN PLACE ON LOW INTERMITTENT SUCTION, OUTPUT-100. ALL DUE MEDICATIONS GIVEN ORDERED. ALL NURSING CARE NEEDS ATTENDED TO. WILL ENDORSE TO ORGAN TUNER ELECTRONIC NURSE FOR PORTIA
--- NOTE | 2017-12-27 19:30 | NUR ---
MS RN OPENING NOTES: PATIENT IN BED, AOX4, ON ROOM AIR, BREATHING EVEN AND UNLABORED, BREATH SOUNDS CLEAR TO AUSCULTATION. APPEARS CALM AND IN NO DISTRESS, DENIES NAUSEA AT THIS TIME, BUT STATES "POQUITO" WHEN ASKED IF SHE HAS ANY PAIN AND POINTS TO HER EPIGASTRIC AREA. PATIENT NOTED TO HAVE NGT INSERTED AT R NARES CONNECTED TO LOW INTERMITTENT SUCTION. NOTED 150 CC OF DARK GREEN GASTRIC ASPIRATE IN COLLECTION CHAMBER. PIV OVER LEFT HAND G 20 INTACT AND INFUSING WELL WITH 1/2NS RUNNING AT 75 ML/HR. PROVIDED FOR COMFORT AND SAFETY. BED IN LOWEST AND LOCKED POSITION, SIDERAILS UP X 3, CALL LIGHT WITHIN REACH. WILL CONT TO MONITOR.
[2017-12-27 19:53] VITALS: BP 126/69
[2017-12-27 20:00] VITALS: BP 126/69
--- NOTE | 2017-12-28 00:02 | NUR ---
RN NOTES: DR BARRAGAN AT BEDSIDE TO ASSESS PATIENT.
[2017-12-28] MEDS ORDERED: PHENOL/SODIUM PHENOLATE 1 BOTTLE MM PRN (00:30)
[2017-12-28] MEDS: METRONIDAZOLE 500MG/ NS 100ML 500 MG in PREMIX 1 EA IV SCH ×3 (01:27→18:18)
[2017-12-28] MEDS: TOBRAMYCIN/DEXAMETH OPHTH DORPS 2.5 ML BOTTLE EACHEYE SCH ×6 (01:27→21:16)
--- NOTE | 2017-12-28 05:31 | NUR ---
RN NOTES: PATIENT REFUSED TO HAVE BLOOD DRAWN FOR CBC. EXPLAINED INDICATION FOR CBC, APPLICATION RELEASE MANAGER AT BEDSIDE TO TRANSLATE. PATIENT STILL REFUSING.
--- NOTE | 2017-12-28 06:39 | NUR ---
MS RN CLOSING NOTES: PATIENT IN BED, AOX4, ON ROOM AIR, BREATHING EVEN AND UNLABORED. APPEARS CALM AND IN NO DISTRESS. NGT INSERTED OVER R NARES, CONNECTED TO LOW INTERMITTENT SUCTION. NOTED TOTAL OF 400 ML GREENISH GASTRIC ASPIRATE COLLECTED THROUGH SHIFT. ABDOMEN SOFT, NON DISTENDED, BOWEL SOUNDS STILLVERY HYPOACTIVE. PATIENT DENIES PAIN OR NAUSEA, ONLY DISCOMFORT IN HER THROAT DUE TO THE NGT. WILL FF UP WITH CHLORASEPTIC SPRAY THAT DR BARRAGAN ORDERED. PIV OVER LEFT HAND G 20 INTACT AND INFUSING WELL WITH 1/2 NS RUNNING AT 75 ML/HR. DUE MEDS GIVEN. PROVIDED FOR COMFORT AND SAFETY. BED IN LOWEST AND LOCKED POSITION, SIDERAILS UP X 3, CALL LIGHT WITHIN REACH. WILL ENDORSE TO AM RN FOR PORTIA.
[2017-12-28] MEDS: METOCLOPRAMIDE HCL 10 MG/2 ML VIAL IV SCH ×2 (07:24→14:56)
--- NOTE | 2017-12-28 07:31 | NUR ---
MS RN NOTES PATIENT RECEIVED RESTING INSIDE ROOM. AWAKE, ALERT AND ORIENTED, VERBALLY RESPONSIVE AND RESPONDS TO VERBAL AND TACTILE STIMULI. ABLE TO MAKE NEEDS KNOWN AND FOLLOW SIMPLE INSTRUCTIONS. NGT IN PLACE ON RIGHT NARES, ON LOW INTERMITTENT SUCTION. PATIENT ON NPO. PATIENT AWARE AND VERBALIZED UNDERSTANDING. FOR TONIO NEUMANN THIS AM. WILL CONTINUE TO MONITOR. BED LOCKED AND IN LOW POSITION. BILATERAL UPPER SIDE RAILS UP AND LOCKED. CALL LIGHT WITHIN EASY REACH
[2017-12-28 08:00] VITALS: BP 116/65
--- NOTE | 2017-12-28 08:31 | NUR ---
MS RN NOTES AERONAUTICAL ENGINEERING TECHNOLOGIST PRESENT AT UNIT TO DRAW BLOOD FOR LABS BUT PATIENT REFUSED. RISKS AND BENEFITS EXPLAINED BUT TO NO AVAIL, EXPLAINED AND OFFERED X 3 BUT PATIENT STRONGLY REFUSED. CHRISTIANO INGRAM NP PRESENT AT UNIT AND MADE AWARE. WILL CONTINUE TO MONITOR
--- NOTE | 2017-12-28 12:30 | NUR ---
MS RN NOTES RECEIVED CALL FROM DR. BARRAGAN. REPORT GIVEN, REPORTED THAT PATIENT DOESNT WANT TO HAVE NGT ANYMORE AND WANTS IT OUT. NO NGT OUTPUT SINCE START OF SHIFT. RECEIVED NEW ORDER TO REMOVE NGT PER PATIENT REQUEST, NOTED AND CARRIED OUT. PATIENT MADE AWARE AND VERBALIZED UNDERSTANDING. NGT REMOVED WITH PATIENT REPORT OF MINIMAL DISCOMFORT. NO BLEEDING OR DRAINAGE NOTED. WILL CONTINUE TO MONITOR
[2017-12-28] MEDS: CEFTRIAXONE 1 G in IV D5W 50 ML IV SCH (14:56)
[2017-12-28] MEDS: PANTOPRAZOLE 40 MG VIAL IV SCH (14:56)
[2017-12-28] MEDS: IV 1/2NS 1000 ML 1,000 ML IV PRN (15:08)
[2017-12-28 16:00] VITALS: BP 104/55
--- NOTE | 2017-12-28 19:45 | NUR ---
MS RN OPENING NOTES PT IN BED ALERT, AWAKE, VERBALLY RESPONSIVE, ON ROOM AIR, RESPIRATIONS EVEN, UNLABORED, NO APPARENT DISTRESS NOTED. NO S/SX OF PAIN OR DISCOMFORT NOTED. IV SITE LT HAND INTACT, PATENT.CALL LIGHT WITHIN REACH. BED LOCKED IN LOWEST POSITION. ATTENDED ALL NEEDS. WILL CONTINUE TO MONITOR ACCORDINGLY.
[2017-12-28 20:00] VITALS: BP 106/59
--- NOTE | 2017-12-28 21:00 | NUR ---
MS RN NOTE WILFREDO LOPEZ PLACED A NOTE TO INSERT NGT FOR CONTINUOUS SUCTIONING, PT REFUSED OFFERED X 3 EXPLAINED BENEFITS, PT REFUSED. DR MAY NOTIFIED. PT ALERT, ABLE TO LET HER NEEDS KNOWN, WILL CONTINUE TO MONITOR. NO S/SX OF PAIN OR DISCOMFORT NOTED.
[2017-12-28 22:00] VITALS: BP 106/59
[2017-12-29] MEDS: METOCLOPRAMIDE HCL 10 MG/2 ML VIAL IV SCH ×3 (00:28→14:55)
[2017-12-29] MEDS: TOBRAMYCIN/DEXAMETH OPHTH DORPS 2.5 ML BOTTLE EACHEYE SCH ×6 (00:30→20:38)
[2017-12-29] MEDS: METRONIDAZOLE 500MG/ NS 100ML 500 MG in PREMIX 1 EA IV SCH ×3 (02:18→17:49)
--- NOTE | 2017-12-29 06:27 | NUR ---
MS RN CLOSING NOTES PT IN BED RESTING COMFORTABLY, ON ROOM AIR, RESPIRATIONS EVEN, UNLABORED, NO APPARENT DISTRESS NOTED. NO C/O OF PAIN OR DISCOMFORT AT THIS TIME, NO N.V NOTED. HOB ELEVATED. IV SITE LT HAND INTACT, PATENT. KEPT CLEAN AND COMFORTABLE, ATTENDED ALL NEEDS. WILL CONTINUE TO MONITOR ACCORDINGLY.
[2017-12-29] MEDS: IV 1/2NS 1000 ML 1,000 ML IV PRN (07:15)
--- NOTE | 2017-12-29 07:20 | NUR ---
MSRN OPENING NOTES. PT RECEIVED A&0X3, RESTING IN BED WATCHING T.V. PT NPO AND KYRGYZ SPEAKING ONLY. PT TOLERATING ROOM AIR WITHOUT SOB OR RESP DISTRESS. PT DENIES PAIN. PT STATES HER STOMACH FEELS A LITTLE BETTER TODAY. PT WITH IVC AT L AC INTACT AND OPERATIONAL WITH IVF PER RX. PT BED IN LOWEST LOCKED POSITION WITH HANDRAILSX2 AND CALL [place] WITHIN REACH, BED ALARM ENGAGED. PT BRIEFED ON TODAY'S POC AND IS WITHOUT CONCERN OR COMPLAINT.
[2017-12-29 08:00] VITALS: BP 111/66
[2017-12-29] MEDS: ONDANSETRON HCL/PF 4 MG/2 ML VIAL IVP PRN (09:06)
--- NOTE | 2017-12-29 12:35 | NUR ---
MSRN NOTES. RADIOLOGY CALLED TO EXPEDITE REPORTING OF AM ABDO XR.
--- NOTE | 2017-12-29 13:00 | NUR ---
MSRN NOTES. ABDO X RAY RESULTED WITH BOTH PRIMARY MD AND SURGICAL MD INFORMED.
[2017-12-29] MEDS: CEFTRIAXONE 1 G in IV D5W 50 ML IV SCH (14:55)
[2017-12-29] MEDS: PANTOPRAZOLE 40 MG VIAL IV SCH (14:55)
[2017-12-29 16:00] VITALS: BP 102/55
--- NOTE | 2017-12-29 18:14 | NUR ---
MSRN CLOSING NOTES. PT REMAINS A&0X3, RESTING IN BED WATCHING T.V WITH FAMILY AT BEDSIDE. PT REMAINS NPO. PT TOLERATING ROOM AIR WITHOUT SOB OR RESP DISTRESS. PT DENIES PAIN. PT WITH IVC AT L AC INTACT AND OPERATIONAL WITH IVF PER RX. PT BED IN LOWEST LOCKED POSITION WITH HANDRAILSX2 AND CALL [place] WITHIN REACH, BED ALARM ENGAGED. PT REPOSITIONED Q2HR OR MORE WITH OFFLOADING THROUGHOUT SHIFT. WOUND CARE COMPLETED. ALL DAY NURSE DUTIES ATTENDED TO AND PT AND FAMILY ARE WITHOUT CONCERN OR COMPLAINT AT THIS TIME. WILL ENDORSE TO NIGHT NURSE AT BEDSIDE FOR PORTIA.
--- NOTE | 2017-12-29 19:20 | NUR ---
MS RN OPENING NOTE RECEIVED PATIENT IN BED, ALERT ORIENTED X3, PANAMANIAN SPEAKING, BUT VERBAL AND ABLE TO COMMUNICATE NEEDS. PATIENT ON ROOM AIR, TOLERATING WELL, IN NO APPARENT DISTRESS OR DISCOMFORT AT THIS TIME. RESPIRATIONS EVEN AND UNLABORED. DENIES PAIN AT THIS TIME, DENIES NAUSEA. ON MEDSURGE STATUS. L AC IVC WITH 1/2 NS RUNNING AT 75 ML/HR. PATIENT KEPT CLEAN AND COMFORTABLE. SAFETY MEASURES IN PLACE, BED IN LOW LOCKED POSITION WITH BED ALARM ON, SIDE RAILS UP X2, CALL LIGHT WITHIN EASY REACH WILL CONTINUE TO MONITOR.
[2017-12-29 20:00] VITALS: BP 100/54
[2017-12-30] MEDS: METOCLOPRAMIDE HCL 10 MG/2 ML VIAL IV SCH ×4 (00:39→21:42)
[2017-12-30] MEDS: TOBRAMYCIN/DEXAMETH OPHTH DORPS 2.5 ML BOTTLE EACHEYE SCH ×6 (00:40→21:44)
[2017-12-30] MEDS: IV 1/2NS 1000 ML 1,000 ML IV PRN ×2 (00:42→17:15)
[2017-12-30] MEDS: METRONIDAZOLE 500MG/ NS 100ML 500 MG in PREMIX 1 EA IV SCH ×3 (01:25→17:14)
--- NOTE | 2017-12-30 02:30 | NUR ---
PATIENT COMPLAINS OF 5/10 BACK LOCALIZED LOWER BACK PAIN. STARTED WHILE AT REST, DOES NOT GO AWAY WITH REPOSITIONING. TYLENOL 650MG GIVEN. WILL CONTINUE TO MONITOR AND REASSESS.
--- NOTE | 2017-12-30 07:48 | NUR ---
MS/RN OPENING NOTE PATIENT IN BED IN STABLE CONDITION. A/O X 3, SLOVENIAN SPEAKING. NO SIGNS OF ACUTE DISTRESS. NO COMPLAIN OF PAIN OR DISCOMFORT. ALL NEEDS ATTENDED TO. CALL LIGHT WITHIN REACH. WILL CONTINUE TO MONITOR TO ENSURE SAFETY.
--- NOTE | 2017-12-30 07:54 | NUR ---
MS RN CLOSING NOTE PATIENT IN BED, ALERT ORIENTED X3, MEXICAN SPEAKING, BUT VERBAL AND ABLE TO COMMUNICATE NEEDS. PATIENT ON ROOM AIR, TOLERATING WELL, IN NO APPARENT DISTRESS OR DISCOMFORT AT THIS TIME. TYLENOL GIVEN AT NIGHT WAS EFFECTIVE. PATIENT SLEPT THROUGH THE NIGHT WELL. RESPIRATIONS EVEN AND UNLABORED. DENIES PAIN AT THIS TIME, DENIES NAUSEA. ON MEDSURGE STATUS. L AC IVC WITH 1/2 NS RUNNING AT 75 ML/HR. PATIENT KEPT CLEAN AND COMFORTABLE ALL NEEDS ATTENDED. SAFETY MEASURES IN PLACE, BED IN LOW LOCKED POSITION WITH BED ALARM ON, SIDE RAILS UP X2, CALL LIGHT WITHIN EASY REACH, WILL ENDORSE TO AM NURSE FOR PORTIA.
[2017-12-30 08:00] VITALS: BP 118/72
--- NOTE | 2017-12-30 09:15 | NUR ---
WOUND CARE CONSULT: PT REFUSED SKIN ASSESSMENT EXCEPT FOR HEELS. BLANCHABLE REDNESS NOTED TO HEELS. HEELS FLOATED. ADMISSION PHOTO SHOWS SACRAL SCARRING/STAINING OF SKIN. CURRENT JASEN SCORE IS 15. ALL SKIN PROTECTION MEASURES IN PLACE AND DISCUSSED WITH NURSING STAFF. WILL SEE PRN. FORD IN AGREEMENT WITH PLAN OF CARE.
--- NOTE | 2017-12-30 09:51 | NUR ---
MS/RN SEEN BY DR BARRAGAN SEEN AND EXAMINED BY DR BARRAGAN WITH NEW ORDER TO CHANGE REGLAN FROM Q 8 HRS TO Q 6 HRS. CBC, BMP, KUB TODAY FOR FOLLOW UP. NOTED AND CARRIED OUT. RESIDENT MADE AWARE
[2017-12-30] MEDS ORDERED: MAG HYDROX/AL HYDROX/SIMETH 30 ML UDC PO PRN (10:30)
--- NOTE | 2017-12-30 11:15 | NUR ---
MS/RN REFUSED LAB WORK PATIENT REFUSED LAB WORK. OFFERED X 3 WITH RISKS AND BENEFITS EXPLAINED STILL CONTINUE TO REFUSE, DAUGHTER JUDY AT BEDSIDE AWARE. AWARE.
[2017-12-30] MEDS: PANTOPRAZOLE 40 MG VIAL IV SCH (13:26)
[2017-12-30] MEDS: CEFTRIAXONE 1 G in IV D5W 50 ML IV SCH (14:05)
--- NOTE | 2017-12-30 15:58 | NUR ---
MS/RN SEEN BY DR MARTINEZ SEEN AND EXAMINED BY DR MARTINEZ, PER DR MARTINEZ NEW ORDER FOR FLEET ENEMA X 1. NOTED AND CARRIED OUT, PATIENT AND FAMILY AWARE.
[2017-12-30 16:00] VITALS: BP 119/67
[2017-12-30] MEDS ORDERED: NA PHOS,M-B/NA PHOS,DI-BA 1 EA ENEMA RC PRN (16:00)
--- NOTE | 2017-12-30 18:20 | NUR ---
MS/RN CLOSING NOTE PATIENT IN BED IN STABLE CONDITION. A/O X 3, KHMER SPEAKING. NO SIGNS OF ACUTE DISTRESS. NO COMPLAIN OF PAIN OR DISCOMFORT. ALL NEEDS ATTENDED TO. CALL LIGHT WITHIN REACH. WILL ENDORSE TO NEXT SHIFT FOR CONTINUITY OF CARE.
--- NOTE | 2017-12-30 19:30 | NUR ---
MSRN RESTING QUIETLY, FAMILY AT BEDSIDE. IRANIAN SPEAKING ONLY, NIMESH TRANSLATING. PATIENT STILL REFUSED ANY BLOODOWRK, EXPLAINED IMPORTANCE OF BLOOD WORK, STILL REFUSED. DAUGHTER AND GRANDAUGHTER WANTED TO SPEAK TO SOC WORKER REGARDING DPOA. DAUGHTER OF PATIENT LAKESHA WILL BE AVAILABLE ON SATURDAY. WILL FOLLOW UP.NO NAUSEA OR VOMITTING, HAD SMALL BM EARLIER POST FLEET ENEMA PER REPORT. PRESENT IVF INFUSING WELL. CLOSELY WATCHED.
[2017-12-30 19:59] VITALS: BP 110/50
[2017-12-30 20:00] VITALS: BP 110/50
[2017-12-30] MEDS: ONDANSETRON HCL/PF 4 MG/2 ML VIAL IVP PRN (22:28)
--- NOTE | 2017-12-30 22:30 | NUR ---
MSRN VOMITTED , AFTER FINISHING HER TEA. ZOFRAN 4MG IVP GIVEN. INSTRUCTED NOT TO TAKE ANYTHING BY MOUTH FOR NOW
--- NOTE | 2017-12-30 22:50 | NUR ---
MSRN SLEEPING APPEARS COMFORTABLE. CONTINUED
[2017-12-31] MEDS: TOBRAMYCIN/DEXAMETH OPHTH DORPS 2.5 ML BOTTLE EACHEYE SCH ×5 (01:09→16:05)
[2017-12-31] MEDS: METRONIDAZOLE 500MG/ NS 100ML 500 MG in PREMIX 1 EA IV SCH ×3 (01:09→17:08)
--- NOTE | 2017-12-31 02:55 | NUR ---
MSRN AWAKENED, STATED NO MORE VOMITTING AFTER ZOFRAN ADM EARLIER. WAS ABLE TO DRINK WATER, TOLERATED. PRESENT IVF INFUSING WELL.
[2017-12-31] MEDS: METOCLOPRAMIDE HCL 10 MG/2 ML VIAL IV SCH ×4 (03:14→21:49)
--- NOTE | 2017-12-31 05:53 | NUR ---
MSRN FULLY AWAKE, STILL REFUSED BLOOD DRAW. REPOSITIONED FOR COMFORT.
--- NOTE | 2017-12-31 06:51 | NUR ---
MSRN REMAINS UNCHANGED. NO BLOOD DRAW STILL PER PATIENT.
--- NOTE | 2017-12-31 07:40 | NUR ---
MS/RN OPENING NOTE PATIENT IN BED IN STABLE CONDITION. A/O X 3, CHINESE SPEAKING. NO SIGNS OF ACUTE DISTRESS. NO COMPLAIN OF PAIN OR DISCOMFORT. REFUSED MORNING LAB WORK, OFFERED X 3 WITH RISKS AND BENEFITS EXPLAINED STILL CONTINUE TO REFUSE. ALL NEEDS ATTENDED TO. CALL LIGHT WITHIN REACH. WILL CONTINUE TO MONITOR TO ENSURE SAFETY.
[2017-12-31 08:00] VITALS: BP 102/51
[2017-12-31] MEDS: IV 1/2NS 1000 ML 1,000 ML IV PRN (08:45)
--- NOTE | 2017-12-31 10:23 | NUR ---
MS/RN REPORT REPORT GIVEN TO LILIA MELENDREZ FOR PORTIA.
--- NOTE | 2017-12-31 10:40 | NUR ---
MS RN NOTES A/O X4, APPEARS ANXIOUS. IRISH SPEAKING ONLY, NEEDS CARROTER. TOLERATING ROOM AIR, NO SOB. IVF INFUSING AT 75ML/HR. DENIES PAIN, SAFETY MEASURES IN PLACE. WILL CONT TO MONITOR.
--- NOTE | 2017-12-31 11:51 | NUR ---
PATIENT REFUSING ROUTINE BLOOD TEST, EDUCATE AND TEACHING PROVIDED, EXPLAINED RISK AND BENEFITS OF GETTING BLOOD DRAW WITH TRINIDADIAN AIDE STUDENT SERVICES REP, ALSO WITH DAUGHTER JUDY OVER THE HOSP PHONE, PATIENT STILL REFUSED X3. WILL HAVE PT TO ASSIST PATIENT WITH AMBULATION.
--- NOTE | 2017-12-31 13:30 | NUR ---
TOLERATING CLEAR LIQUIDS DIET, NO EPISODE OF VOMITING, NO C/O NAUSEA. PLACE PATIENT ON PUREED DIET TOLERATED. PATIENT AGREED ON BLOOD TEST, DAUGHTER JUDY AT THE BEDSIDE. WILL CONT TO MONITOR.
[2017-12-31 13:45] LABS: BASOPHILS # (AUTO) 0.1 /CMM (0.0-0.2); BASOPHILS % (AUTO) 0.5 % (0.0-2.0); EOSINOPHILS # (AUTO) 0.1 /CMM (0.0-0.7); EOSINOPHILS % (AUTO) 1.2 % (0.0-6.0); HEMATOCRIT 38 % (33-45); HEMOGLOBIN 12.7 g/dL (11.5-14.8); LYMPHOCYTES # (AUTO) 1.2 /CMM (0.8-4.8); MEAN CORPUSCULAR HEMOGLOBIN 28 PG (26.0-33.0); MEAN CORPUSCULAR HGB CONC 34 g/dl (31.0-36.0); MEAN CORPUSCULAR VOLUME 84 fL (82-100); MONOCYTES # (AUTO) 0.6 /CMM (0.1-1.30); NEUTROPHILS # (AUTO) 9.6 /CMM (1.8-8.9); NEUTROPHILS % (AUTO) 83.3 % (43.0-81.0); PLATELET COUNT (AUTO) 248 /CMM (150-450); RED BLOOD CELL COUNT(AUTO) 4.52 MIL/uL (4.0-5.2); WHITE BLOOD COUNT (AUTO) 11.5 K/uL (4.3-11.0)
[2017-12-31 13:54] LABS: CALCIUM, SERUM 8.2 mg/dL (8.5-10.1); CARBON DIOXIDE 25 mmol/L (21-32); CHLORIDE 99 mmol/L (98-107); CREATININE 0.5 mg/dL (0.6-1.3); GLUCOSE 130 mg/dL (74-106); SODIUM SERUM 135 mmol/L (136-145); UREA NITROGEN, BLOOD 2 mg/dL (7-18)
[2017-12-31 13:58] LABS: POTASSIUM 2.6 mmol/L (3.5-5.1)
[2017-12-31] MEDS: PANTOPRAZOLE 40 MG VIAL IV SCH (14:37)
[2017-12-31] MEDS: CEFTRIAXONE 1 G in IV D5W 50 ML IV SCH (14:45)
[2017-12-31 16:00] VITALS: BP_SYST 100; BP_SYST 162; BP_DIAS 54; BP_DIAS 84
[2017-12-31] MEDS ORDERED: POTASSIUM CHLORIDE 20 MEQ POWDER PACKET PO ONE (16:30)
--- NOTE | 2017-12-31 19:01 | NUR ---
MS RN CLOSING NOTES DENIES PAIN, POTASSIUM SUPPLEMENTED TODAY ORDERED. DIET ADVANCED TO PUREED, TOLERATING WELL, NO EPISODE OF VOMITING, NO REPORTED NAUSEA. AWAITS PT FOR AMBULATION, PLAN DC 01/01/18 WHEN CLEARED BY SURGERY. SAFETY MEASURES IN PLACE. WILL ENDORSE TO ONCOMING RN.
--- NOTE | 2017-12-31 19:40 | NUR ---
MS RN NOTE: PATIENT RESTING IN BED, NO ACUTE DISTRESS NOTED. BREATHING EVEN AND UNLABORED, NO SOB NOTED. IV TO LEFT HAND IN PLACE, INFUSING 1/2NS AT 75 ML/HR. BED LOCKED AND IN LOWEST POSITION, CALL LIGHT IN REACH. WILL CONTINUE TO MONITOR.
[2017-12-31 20:00] VITALS: BP 84/48
[2018-01-01] MEDS: METRONIDAZOLE 500MG/ NS 100ML 500 MG in PREMIX 1 EA IV SCH ×3 (02:27→17:55)
[2018-01-01] MEDS: IV 1/2NS 1000 ML 1,000 ML IV PRN (02:27)
--- NOTE | 2018-01-01 03:05 | NUR ---
MS RN NOTE: PATIENT RESTING IN BED, NO ACUTE DISTRESS NOTED. BREATHING EVEN AND UNLABORED, NO SOB NOTED. BED LOCKED AND IN LOWEST POSITION, CALL LIGHT IN REACH. WILL CONTINUE TO MONITOR.
[2018-01-01] MEDS: METOCLOPRAMIDE HCL 10 MG/2 ML VIAL IV SCH ×3 (03:34→15:28)
--- NOTE | 2018-01-01 06:10 | NUR ---
MS RN NOTE: PATIENT RESTING IN BED, NO ACUTE DISTRESS NOTED. BREATHING EVEN AND UNLABORED, NO SOB NOTED. IV TO LEFT HAND IN PLACE, INFUSING 1/2NS AT 75 ML/HR. BED LOCKED AND IN LOWEST POSITION, CALL LIGHT IN REACH. WILL ENDORSE TO DAY NURSE TO CONTINUE WITH PLAN OF CARE.
--- NOTE | 2018-01-01 07:10 | NUR ---
MSRN OPENING NOTES. PT RECEIVED AWAKE AND RESTING IN BED, PT A&0X3, MACANESE SPEAKING ONLY. PT TOLERATING ROOM AIR WITHOUT RESP DISTRESS. PT DENIES PAIN. PT WITH IVC AT L HAND INTACT AND OPERATIONAL WITH IVF PER RX. PT ASSISTED WITH REPOSITIONING. PT BED IN LOWEST LOCKED POSITION WITH HANDRAILSX2 AND CALL [place] WITHIN REACH, BED ALARM ENGAGED. PT BRIEFED ON TODAY'S POC AND IS WITHOUT CONCERN OR COMPLAINT.
--- NOTE | 2018-01-01 09:00 | NUR ---
HUGO Esparza PT MOVED TO BED 324-1 R/T CODE IN ROOM BED 2.
[2018-01-01] MEDS: CEFTRIAXONE 1 G in IV D5W 50 ML IV SCH (15:27)
[2018-01-01] MEDS: PANTOPRAZOLE 40 MG VIAL IV SCH (15:28)
--- NOTE | 2018-01-01 19:10 | NUR ---
RN OPENING NOTES RECEIVED PATIENT IN BED, AWAKE, ALERT AND ORIENTED X 3, IN NO ACUTE DISTRESS, VERBALLY RESPONSIVE, NO C/O PAIN AND IN STABLE CONDITION. NOTED WITH FAMILY AT BEDSIDE. 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 ALL PATIENT'S NEEDS ATTENDED TO AT THIS TIME, PLACED BED IN LOW POSITION AND LOCKED IN PLACE, CALL LIGHT WITHIN EASY REACH. WILL CONTINUE TO MONITOR.
--- NOTE | 2018-01-01 19:27 | NUR ---
MSRN D/C NOTES. PT PREPARED FOR D/C PER ANIMAL KILLER. PT WITH FAMILY AT BEDSIDE. PT TOLERATING ROOM AIR WITHOUT SOB. PT DENIES PAIN. PT WITH IVC TO BE REMOVED BY NIGHT NURSE AT D/C. PT WITH ALL BELONGING AND DOCUMENT SIGNED. PT AND ADULT GRANDDAUGHTER BRIEFED ON [facility] D/C PACKET, FAMILY VERBALIZING UNDERSTANDING AND REQUESTING IT BE GIVEN TO EMT TO GIVE TO NADIA BACA RN. WOUND CARE PER RX AND PHOTOGRAPHED UPDATED. ALL DAY NURSE DUTIES ATTENDED TO AND PT AND FAMILY ARE WITHOUT CONCERN OR COMPLAINT AT THIS TIME. ENDORSED TO NIGHT NURSE FOR [place] UNTIL D.C AT EST 1945.
[2018-01-01 20:00] VITALS: BP 116/56
--- NOTE | 2018-01-01 20:00 | NUR ---
SHERIFFS NOTES PATIENT IN BED, AWAKE, ALERT AND ORIENTED X 3, NO SOB NOTED, BREATHING EVEN AND UNLABORED, IN NO ACUTE DISTRESS, FAMILY AT BEDSIDE. PATIENT REFUSING VITAL SIGNS TO BE TAKEN, EXPLAINED TO PATIENT THAT VITAL SIGNS ARE NEEDED BEFORE SHE CAN BE DISCHARGED. PATIENT AGREED. PERSONNEL OF [facility] PRESENT IN UNIT FOR PATIENT DISCHARGE. VITAL SIGNS STABLE, IV LINE REMOVED AND PATIENT TOLERATED PROCEDURE WELL, NO BLEEDING, NO REDNESS AND NO S/S OF INFECTION NOTED ON IV SITE. [facility] TRANSFERRED PATIENT SAFELY FROM BED TO [facility],WITH NO C/O PAIN, EXITED UNIT IN STABLE CONDITION.
== END 2018-01-01 20:00 | DRG 244 ==
LOC: ER 22:47 → TELE 12-25 00:47 → MED 12-25 10:49
PROVIDERS: ADMIT Internal Medicine; ATTEND Internal Medicine
DX: K57.32 Diverticulitis of large intestine without perforation or abscess without bleeding (principal); L89.159 Pressure ulcer of sacral region, unspecified stage; E44.0 Moderate protein-calorie malnutrition; I11.0 Hypertensive heart disease with heart failure; E11.65 Type 2 diabetes mellitus with hyperglycemia; K56.7 Ileus, unspecified; I50.9 Heart failure, unspecified; E87.1 Hypo-osmolality and hyponatremia; N39.0 Urinary tract infection, site not specified; M87.9 Osteonecrosis, unspecified; D72.829 Elevated white blood cell count, unspecified; K57.92 Diverticulitis of intestine, part unspecified, without perforation or abscess without bleeding; Z98.890 Other specified postprocedural states; Z79.84 Long term (current) use of oral hypoglycemic drugs; I69.351 Hemiplegia and hemiparesis following cerebral infarction affecting right dominant side; I25.10 Atherosclerotic heart disease of native coronary artery without angina pectoris; E78.5 Hyperlipidemia, unspecified; M54.5 Low back pain; Z90.49 Acquired absence of other specified parts of digestive tract; M16.11 Unilateral primary osteoarthritis, right hip; H91.90 Unspecified hearing loss, unspecified ear; E87.6 Hypokalemia; Z82.49 Family history of ischemic heart disease and other diseases of the circulatory system; B96.20 Unspecified Escherichia coli [E. coli] as the cause of diseases classified elsewhere; Z16.23 Resistance to quinolones and fluoroquinolones; L98.9 Disorder of the skin and subcutaneous tissue, unspecified
CPT/HCPCS: 36415; 71045-TC; 74018; 74250-TC; 80048-TC; 80053-TC; 80061-TC; 80076-TC; 81000-TC; 82962-TC; 83690-TC; 83735-TC; 84100-TC; 84484-TC; 85025-TC; 85730-TC; 87081-TC; 87086-TC; 87186-TC; 92611-TC; A4216; A4606; C9113; J0696; J0744; J1956; J2270; J2405; J2765; J3490; J7030; J7060; Q9963; Z7610

== ENCOUNTER 2018-02-01 17:42 | Emergency (ER) | payer MEDICARE, OTHER ==
[~2018-02-01] VITALS: Ht 149.9 cm; Wt 51.3 kg
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
[2018-02-01] MEDS ORDERED: TDAP [DIPH/PERTUSSIS/TET] 0.5 ML VIAL IM ONE ×2 (18:18→18:30)
[2018-02-01] MEDS ORDERED: LIDOCAINE HCL/PF 1% 30 ML SDV ONE (18:18)
--- NOTE | 2018-02-01 18:19 | NUR ---
PT LEFT FOR CT VIA [facility]
--- NOTE | 2018-02-01 18:24 | NUR ---
LIDOCAINE AT THE BEDSIDE FOR MD. PT TO BE SUTURED.
[2018-02-01] MEDS ORDERED: LIDOCAINE 1% INJ 50 ML MDV IJ ONE (18:30)
--- NOTE | 2018-02-01 18:33 | NUR ---
PT RETURNED FROM CT. TDAP GIVEN.
--- NOTE | 2018-02-01 18:34 | NUR ---
WOUND CARE DONE BY Mirna DURAN, MARCELO.
--- NOTE | 2018-02-01 18:57 | NUR ---
SUTURE SET UP IS AT THE BEDSIDE.
--- NOTE | 2018-02-01 18:58 | NUR ---
PT REQUESTED A SANDWICH AND ORANGE JUICE. PT IS TOLERATING PO WELL.
--- NOTE | 2018-02-01 19:27 | NUR ---
PT REC'D 6 STICHES TO THE FOREHEAD.
--- NOTE | 2018-02-01 19:28 | NUR ---
CALLING [facility] RE: CT READ.
--- NOTE | 2018-02-01 19:52 | NUR ---
CALLED [facility], SPOKE WITH THE CHARGE NURSE DANISHA, PRESENTED PT, FAXED FACESHEET AND PT RESULTS TO HER AT [phone]
[2018-02-01] MEDS ORDERED: MORPHINE SULFATE INJ 2 MG/ML DISP.SYRIN IV ONE (20:00)
[2018-02-01] MEDS ORDERED: ONDANSETRON HCL/PF 4 MG/2 ML VIAL IV ONE (20:00)
[2018-02-01 20:02] LABS: BASOPHILS # (AUTO) 0.1 /CMM (0.0-0.2); BASOPHILS % (AUTO) 0.6 % (0.0-2.0); EOSINOPHILS % (AUTO) 1.2 % (0.0-6.0); HEMATOCRIT 38 % (33-45); HEMOGLOBIN 12.9 g/dL (11.5-14.8); LYMPHOCYTES # (AUTO) 1.3 /CMM (0.8-4.8); LYMPHOCYTES % (AUTO) 15.6 % (20.0-44.0); MEAN CORPUSCULAR HGB CONC 34 g/dl (31.0-36.0); MEAN CORPUSCULAR VOLUME 85 fL (82-100); MONOCYTES # (AUTO) 0.5 /CMM (0.1-1.30); MONOCYTES % (AUTO) 5.5 % (2.0-12.0); NEUTROPHILS # (AUTO) 6.4 /CMM (1.8-8.9); NEUTROPHILS % (AUTO) 77.1 % (43.0-81.0); PLATELET COUNT (AUTO) 236 /CMM (150-450); RDW COEFFICIENT OF VARIATION 14.9 (11.5-15.0); RED BLOOD CELL COUNT(AUTO) 4.44 MIL/uL (4.0-5.2); WHITE BLOOD COUNT (AUTO) 8.4 K/uL (4.3-11.0)
[2018-02-01] MEDS ORDERED: MORPHINE SULFATE INJ 2 MG/ML DISP.SYRIN ONE (20:02)
[2018-02-01] MEDS ORDERED: ONDANSETRON HCL/PF 4 MG/2 ML VIAL ONE (20:02)
[2018-02-01 20:12] LABS: CALCIUM, SERUM 8.8 mg/dL (8.5-10.1); CARBON DIOXIDE 26 mmol/L (21-32); CHLORIDE 93 mmol/L (98-107); CREATININE 0.5 mg/dL (0.6-1.3); GLUCOSE 74 mg/dL (74-106); POTASSIUM 4.5 mmol/L (3.5-5.1); SODIUM SERUM 126 mmol/L (136-145); UREA NITROGEN, BLOOD 16 mg/dL (7-18)
[2018-02-01 20:16] LABS: INR 0.93 (0.85-1.15)
--- NOTE | 2018-02-01 20:16 | NUR ---
PT IS C/O THAT THE C-COLLAR IS HURTING HER. GAUZE PLACED UNDER C-COLLAR AT THE CHEST TO PAD THE COLLAR BONE AND CHEST AREA.
--- NOTE | 2018-02-01 20:16 | NUR ---
RECEIVED CALL FROM DANISHA AT [facility], TRANSFERRED CALL TO AUSTIN NAYLOR.
--- NOTE | 2018-02-01 20:20 | NUR ---
CALLED , TRAUMA SURGEON, AT [phone], AT [facility], TRANSFERRED CALL TO AUSTIN NAYLOR.
--- NOTE | 2018-02-01 20:24 | NUR ---
PT IS C/O C-COLLAR BOTHERING HER RT CLAVICAL. GAUZE PLACED UNDER COLLAR AT THE CLAVICAL TO PAD THE COLLAR.
--- NOTE | 2018-02-01 20:26 | NUR ---
PUT TRANSPORT ON WILL CALL, ALS CAN BE HER AT 10P; TRIP NUMBER [id number]
--- NOTE | 2018-02-01 20:49 | NUR ---
EKG IN PROGRESS AT THE BEDSIDE. PT DENIES CORMIER, BUT IS STILL COMPLAINING ABOUT THE C-COLLAR. VSS
--- NOTE | 2018-02-01 21:07 | NUR ---
NEGRETE CATH INSERTED. 50 ML YELLOW URINE OUTPUT NOTED. SAMPLE SENT TO LAB.
--- NOTE | 2018-02-01 21:18 | NUR ---
ACCEPTED BY MD ZACARIAS. ETA FOR TRANSPORT 163 PLEASE SEND IMAGES TO JUN HUITRON AT [phone]
--- NOTE | 2018-02-01 21:40 | NUR ---
REPORT GIVEN TO ANEESH RAMAN AT [facility].
--- NOTE | 2018-02-01 21:46 | NUR ---
PT ROLLED ON HER RIGHT SIDE. PT'S DAUGHTER IS AT THE BEDSIDE. PT WAS LOG ROLLED BACK TO [place] POSITION BY 2 [employer]LECT[employer] BUS AND MYSELF.
[2018-02-01 21:47] VITALS: BP 113/41
--- NOTE | 2018-02-01 21:56 | NUR ---
AMBULANCE ARRIVED AND REPORT GIVEN TO EMT. COPY OF PT'S CHART GIVEN TO EMT ALONG WITH IMAGING FINDINGS AND DISK. PT BEING TRANSFERRED TO [facility]. VSS.
--- NOTE | 2018-02-01 21:57 | NUR ---
CALLED [facility] RE: PT ABOUT TO LEAVE OUR ER. SPOKE TO YOON.
== END 2018-02-01 22:10 ==
LOC: ER 17:46
DX: S01.81XA Laceration without foreign body of other part of head, initial encounter (principal); S13.120A Subluxation of C1/C2 cervical vertebrae, initial encounter; E11.9 Type 2 diabetes mellitus without complications; F03.90 Unspecified dementia, unspecified severity, without behavioral disturbance, psychotic disturbance, mood disturbance, and anxiety; H40.9 Unspecified glaucoma; I10 Essential (primary) hypertension; I25.10 Atherosclerotic heart disease of native coronary artery without angina pectoris; K21.9 Gastro-esophageal reflux disease without esophagitis; Z23 Encounter for immunization; Z79.82 Long term (current) use of aspirin; Z79.84 Long term (current) use of oral hypoglycemic drugs; Z86.73 Personal history of transient ischemic attack (TIA), and cerebral infarction without residual deficits; W05.0XXA Fall from non-moving wheelchair, initial encounter; Y93.01 Activity, walking, marching and hiking; Y92.89 Other specified places as the place of occurrence of the external cause; Y99.8 Other external cause status
CPT/HCPCS: 36415; 70450-TC; 71045-TC; 72125-TC; 80048-TC; 85025-TC; 85730-TC; 90715; A4606; A6402; J2270; J2405; J3490; L0172; Z7610

== ENCOUNTER 2018-02-14 09:26 | Emergency (ER) | payer MEDICARE, OTHER ==
[~2018-02-14] VITALS: Ht 154.9 cm; Wt 46.7 kg
--- NOTE | 2018-02-14 09:35 | NUR ---
BBPA FROM [facility]: BACK PAIN SINCE LAST NIGHT 2200. DENIES FALL/INJURY. A/OX 4. BREATHING EVEN AND UNLABORED. NO SOB, NAD, VITALS STABLE. SAFETY AND COMFORT MEASURES IN PLACE. AWAITING MD ORDERS.
--- NOTE | 2018-02-14 09:55 | NUR ---
PATIENT TAKEN TO RADIOLOGY VIA STRETCHER.
[2018-02-14] MEDS ORDERED: ONDANSETRON 4 MG TAB.RAPDIS SL ONE (10:00)
[2018-02-14] MEDS ORDERED: HYDROCODONE/APAP 5/325MG 1 EACH TABLET PO ONE (10:00)
[2018-02-14] MEDS ORDERED: HYDROCODONE/APAP 5/325MG 1 EACH TABLET ONE ×2 (10:04→10:05)
[2018-02-14] MEDS ORDERED: ONDANSETRON 4 MG TAB.RAPDIS ONE (10:04)
--- NOTE | 2018-02-14 10:09 | NUR ---
PATIENT RETURNED FROM RADIOLOGY IN STABLE CONDITION.
--- NOTE | 2018-02-14 11:55 | NUR ---
DAUGHTER, JUDY: [phone]
--- NOTE | 2018-02-14 11:59 | NUR ---
CALLED [facility] TO ARRANGE A BLS TRANSPORT BACK TO HER [facility], [facility]. WAS GIVEN AN ETA OF 1300 TRIP#: [id number]
[2018-02-14 12:49] VITALS: BP 109/78
== END 2018-02-14 12:49 | disposition home or self-care (01) ==
LOC: ER 09:27
DX: M48.54XA Collapsed vertebra, not elsewhere classified, thoracic region, initial encounter for fracture (principal); M51.26 Other intervertebral disc displacement, lumbar region; M54.5 Low back pain; I10 Essential (primary) hypertension; E11.9 Type 2 diabetes mellitus without complications; F03.90 Unspecified dementia, unspecified severity, without behavioral disturbance, psychotic disturbance, mood disturbance, and anxiety; K21.9 Gastro-esophageal reflux disease without esophagitis; H40.9 Unspecified glaucoma; Z86.79 Personal history of other diseases of the circulatory system; Z87.39 Personal history of other diseases of the musculoskeletal system and connective tissue; Z79.84 Long term (current) use of oral hypoglycemic drugs; Z90.89 Acquired absence of other organs; Z86.73 Personal history of transient ischemic attack (TIA), and cerebral infarction without residual deficits
CPT/HCPCS: 72128-TC; 72131-TC; A4606; Q0162; Z7610

== ENCOUNTER 2018-12-19 10:27 | Emergency (ER) | payer MEDICARE, OTHER ==
[~2018-12-19] VITALS: Ht 152.4 cm; Wt 46.3 kg
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
--- NOTE | 2018-12-19 10:42 | NUR ---
DR LLOYD AT BEDSIDE
[2018-12-19 11:03] LABS: BASOPHILS # (AUTO) 0.1 /CMM (0.0-0.2); BASOPHILS % (AUTO) 0.7 % (0.0-2.0); EOSINOPHILS % (AUTO) 3.6 % (0.0-6.0); HEMATOCRIT 34 % (33-45); HEMOGLOBIN 11.2 g/dL (11.5-14.8); LYMPHOCYTES # (AUTO) 1.2 /CMM (0.8-4.8); LYMPHOCYTES % (AUTO) 14.4 % (20.0-44.0); MEAN CORPUSCULAR HGB CONC 33 g/dl (31.0-36.0); MEAN CORPUSCULAR VOLUME 88 fL (82-100); MONOCYTES # (AUTO) 0.5 /CMM (0.1-1.30); MONOCYTES % (AUTO) 6.3 % (2.0-12.0); PLATELET COUNT (AUTO) 275 /CMM (150-450); RED BLOOD CELL COUNT(AUTO) 3.81 MIL/uL (4.0-5.2)
[2018-12-19 11:13] LABS: CARBON DIOXIDE 25 mmol/L (21-32); CHLORIDE 99 mmol/L (98-107); CREATININE 0.7 mg/dL (0.6-1.3); GLUCOSE 117 mg/dL (74-106); POTASSIUM 4.9 mmol/L (3.5-5.1); SODIUM SERUM 132 mmol/L (136-145); UREA NITROGEN, BLOOD 21 mg/dL (7-18)
[2018-12-19 11:16] LABS: ALANINE AMINOTRANSFERASE 10 U/L (12-78); ALBUMIN 3.1 g/dL (3.4-5.0); ALKALINE PHOSPHATASE 87 U/L (46-116); ASPARTATE AMINOTRANSFERASE 19 U/L (15-37); BILIRUBIN,DIRECT 0.1 mg/dL (0.0-0.2); BILIRUBIN,TOTAL 0.6 mg/dL (0.2-1.0)
[2018-12-19 11:24] LABS: APPEARANCE,URINE Slightly Cloudy (CLEAR); BILIRUBIN,URINE Negative (NEGATIVE); BLOOD, URINE Trace-lysed Ery/uL (NEGATIVE); COLOR,URINE Yellow (YELLOW); KETONES,URINE Negative (NEGATIVE); LEUKOCYTE ESTERASE ,URINE Small (NEGATIVE); NITRITE, URINE Positive (NEGATIVE); PROTEIN,URINE Negative (NEGATIVE); UGLUCOSE Negative (NEGATIVE)
[2018-12-19 11:29] LABS: BACTERIA,URINE Moderate /HPF (None Seen); RBC,URINE 0-2 /HPF (0-2)
[2018-12-19 11:30] LABS: SQUAMOUS EPITHELIAL CELL,UR Few /HPF (None Seen)
[2018-12-19] MEDS ORDERED: IPRATROPIUM NEB FS 0.5 MG/2.5 ML AMPUL.NEB NEB ONE (12:30)
[2018-12-19] MEDS ORDERED: predniSONE 20 MG TABLET PO ONE (12:30)
[2018-12-19] MEDS ORDERED: ALBUTEROL FS 2.5 MG/3 ML VIAL.NEB NEB ONE (12:30)
[2018-12-19] MEDS ORDERED: ACET-868 PO (12:45)
[2018-12-19] MEDS ORDERED: CYCL5TAB PO (12:45)
[2018-12-19] MEDS ORDERED: HYDR-4384 PO (12:45)
[2018-12-19] MEDS ORDERED: NAPR-1009 PO (12:45)
[2018-12-19] MEDS ORDERED: BISA10SU8 RC (12:45)
[2018-12-19] MEDS ORDERED: GUAI5SYR PO (12:45)
[2018-12-19] MEDS ORDERED: DOCU-141 PO (12:45)
[2018-12-19] MEDS ORDERED: POLY17PO4 PO (12:45)
[2018-12-19] MEDS ORDERED: TRAM50TA2 PO (12:45)
[2018-12-19] MEDS ORDERED: ESCI10TA PO (12:45)
[2018-12-19] MEDS ORDERED: GABA-532 PO (12:45)
[2018-12-19] MEDS ORDERED: predniSONE 20 MG TABLET ONE (12:47)
--- NOTE | 2018-12-19 12:49 | NUR ---
PT COMPLAINED OF DIZZINESS, MADE MD AWARE, RECEIVED VERBAL ORDER OF MECLIZINE 12.5MG PO. CARRIED OUT ORDER
[2018-12-19] MEDS ORDERED: MECLIZINE HCL 12.5 MG TABLET ONE (12:51)
[2018-12-19] MEDS ORDERED: MECLIZINE HCL 12.5 MG TABLET PO ONE (13:00)
[2018-12-19] MEDS ORDERED: ALBUTEROL FS 2.5 MG/3 ML VIAL.NEB ONE (13:01)
[2018-12-19] MEDS ORDERED: IPRATROPIUM NEB FS 0.5 MG/2.5 ML AMPUL.NEB ONE (13:01)
--- NOTE | 2018-12-19 13:04 | NUR ---
RT AT BEDSIDE, STARTED BREATHING TREATMENT
--- NOTE | 2018-12-19 13:50 | NUR ---
[facility] CALLED [facility]. TRIP # [id number]
--- NOTE | 2018-12-19 15:11 | NUR ---
REPORT GIVEN TO CHRISTIANO OF [facility].
--- NOTE | 2018-12-19 15:12 | NUR ---
IV removed. Catheter intact and site benign. Pressure and 4x4 applied to site. No bleeding noted.Patient discharged to [facility] in stable condition. Written and verbal after care instructions given. Patient verbalizes understanding of instruction. Pt will be brought back to [facility].
[2018-12-19 15:21] VITALS: BP 126/66
== END 2018-12-19 15:15 ==
LOC: ER 10:30
DX: J40 Bronchitis, not specified as acute or chronic (principal); F03.90 Unspecified dementia, unspecified severity, without behavioral disturbance, psychotic disturbance, mood disturbance, and anxiety; I10 Essential (primary) hypertension; K21.9 Gastro-esophageal reflux disease without esophagitis; E11.9 Type 2 diabetes mellitus without complications; M62.81 Muscle weakness (generalized); I45.10 Unspecified right bundle-branch block; R13.10 Dysphagia, unspecified; Z90.89 Acquired absence of other organs; Z86.73 Personal history of transient ischemic attack (TIA), and cerebral infarction without residual deficits
CPT/HCPCS: 36415; 71045; 80048; 80076; 81001; 83605; 84484; 85025; 85730; 87040 ×2; 87086; 93005; 94640; 99285; J7512; J8597; 81000-TC

== ENCOUNTER 2019-05-16 18:05 | Emergency (ER) | payer MEDICARE, OTHER ==
[~2019-05-16] VITALS: Ht 152.4 cm; Wt 45.8 kg
[~2019-05-16 18:05] MED LIST changes: +ACET-868 PO; +BISA10SU11 RC; +CYCL5TAB PO; +DOCU-141 PO; +ESCI10TA PO; +GABA-532 PO; -GABA100C PO; -GLIP10TA11 PO; +GUAI5SYR PO; +HYDR-4384 PO; -METH4TAB16 PO; +NAPR-1009 PO; -OMEP20TA5 PO; +POLY17PO4 PO; +TRAM50TA2 PO
[2019-05-16] MEDS ORDERED: KETOROLAC TROMETHAMINE INJ 30 MG/ML VIAL IV ONE (18:30)
[2019-05-16] MEDS ORDERED: MAG30ORA PO (18:34)
[2019-05-16] MEDS ORDERED: DULO30CA2 PO (18:34)
[2019-05-16] MEDS ORDERED: ALBU8.5H8 IH (18:34)
[2019-05-16] MEDS ORDERED: MIRT15TA7 PO (18:34)
--- NOTE | 2019-05-16 18:35 | NUR ---
FLORENTINO, FROM SNF, C/O ABD PAIN, -N/V, +DIARRHEA x 4 DAYS. PT STABLE, LATVIAN SPEAKING, DAUGHTER @ BS ASSISTING WITH TRANSLATION. RR EVEN & UNLABORED. DENIES CP, SOB, DIZZINESS @ THIS TIME. SEEN & EVAL'D BY DR. GASPAR. FAMILY @ BS & WILL CONT TO MONITOR.
[2019-05-16 18:36] LABS: BASOPHILS # (AUTO) 0.1 /CMM (0.0-0.2); BASOPHILS % (AUTO) 1.1 % (0.0-2.0); EOSINOPHILS % (AUTO) 2.1 % (0.0-6.0); HEMATOCRIT 36 % (33-45); LYMPHOCYTES # (AUTO) 1.4 /CMM (0.8-4.8); LYMPHOCYTES % (AUTO) 17.6 % (20.0-44.0); MEAN CORPUSCULAR HGB CONC 34 g/dl (31.0-36.0); MEAN CORPUSCULAR VOLUME 89 fL (82-100); MONOCYTES # (AUTO) 0.8 /CMM (0.1-1.30); MONOCYTES % (AUTO) 10.6 % (2.0-12.0); NEUTROPHILS # (AUTO) 5.3 /CMM (1.8-8.9); NEUTROPHILS % (AUTO) 68.6 % (43.0-81.0); PLATELET COUNT (AUTO) 257 /CMM (150-450); RED BLOOD CELL COUNT(AUTO) 4.03 MIL/uL (4.0-5.2); WHITE BLOOD COUNT (AUTO) 7.7 K/uL (4.3-11.0)
--- NOTE | 2019-05-16 18:37 | NUR ---
PT TO CT VIA [facility].
[2019-05-16 18:44] LABS: CALCIUM, SERUM 8.9 mg/dL (8.5-10.1); CARBON DIOXIDE 29 mmol/L (21-32); CHLORIDE 93 mmol/L (98-107); CREATININE 0.5 mg/dL (0.6-1.3); GLUCOSE 83 mg/dL (74-106); POTASSIUM 4.6 mmol/L (3.5-5.1); SODIUM SERUM 128 mmol/L (136-145); UREA NITROGEN, BLOOD 16 mg/dL (7-18)
[2019-05-16] MEDS ORDERED: KETOROLAC TROMETHAMINE 15 MG/ML VIAL ONE (18:53)
--- NOTE | 2019-05-16 19:34 | NUR ---
URINE COLLECTED & SENT TO LAB
[2019-05-16 19:39] LABS: APPEARANCE,URINE Clear (CLEAR); BILIRUBIN,URINE Negative (NEGATIVE); BLOOD, URINE Trace-intact Ery/uL (NEGATIVE); COLOR,URINE Yellow (YELLOW); KETONES,URINE Negative (NEGATIVE); LEUKOCYTE ESTERASE ,URINE Moderate (NEGATIVE); NITRITE, URINE Positive (NEGATIVE); PH,URINE 6.5 (5.0-8.0); PROTEIN,URINE Negative (NEGATIVE); UGLUCOSE Negative (NEGATIVE)
[2019-05-16 19:46] LABS: BACTERIA,URINE Many /HPF (None Seen); RBC,URINE 0-2 /HPF (0-2); SQUAMOUS EPITHELIAL CELL,UR Few /HPF (None Seen); WBC,URINE TOO NUMEROUS TO COUN /HPF (0-3)
--- NOTE | 2019-05-16 20:11 | NUR ---
[facility] ETA [id number] [facility] [id number]
--- NOTE | 2019-05-16 20:41 | NUR ---
Patient discharged to home in stable condition. Written and verbal after care instructions given TO DAUGHTER. DAUGHTER verbalizes understanding of instruction. IV removed. Catheter intact and site benign. Pressure and 4x4 applied to site. No bleeding noted.
[2019-05-16 21:25] VITALS: BP 112/55
== END 2019-05-16 21:26 ==
LOC: ER 18:08
DX: S22.42XA Multiple fractures of ribs, left side, initial encounter for closed fracture (principal); F03.90 Unspecified dementia, unspecified severity, without behavioral disturbance, psychotic disturbance, mood disturbance, and anxiety; E11.9 Type 2 diabetes mellitus without complications; I25.10 Atherosclerotic heart disease of native coronary artery without angina pectoris; I10 Essential (primary) hypertension; K21.9 Gastro-esophageal reflux disease without esophagitis; M62.81 Muscle weakness (generalized); Z90.89 Acquired absence of other organs; Z86.73 Personal history of transient ischemic attack (TIA), and cerebral infarction without residual deficits; Z90.49 Acquired absence of other specified parts of digestive tract; W18.09XA Striking against other object with subsequent fall, initial encounter; Y93.89 Activity, other specified; Y92.89 Other specified places as the place of occurrence of the external cause; Y99.8 Other external cause status
CPT/HCPCS: 36415; 71250; 74176; 80048; 81001; 85025; 87086; 96374; 99284; J1885; 81000-TC; 87186-TC